=== PATIENT | male | born 1950 | race Caucasian/White ===

== ENCOUNTER 2018-06-12 18:07 | Inpatient (IN) | payer MEDICARE, OTHER ==
--- NOTE | 2018-06-12 18:30 | ED ---
GI/ HPI - HPI Summary HPI Summary: A 67 y/o male brought in by ambulance presents to [facility] with a chief complaint of a possible GI bleed since 02:00 06/12/18. He rates his pain as 0/10. He reports bright red blood in his stool. The patient came from [facility] because the patient was anemic. He had a hemoglobin of 7. He was given 2 units of blood at [place]. He denies hematemesis or abd pain but reports some abd discomfort. He was diagnosed with alcohol induced cirrhosis 4-[address] Alfredo is his GI MD. He also reports a thyroid condition and c/o some nausea. Allergic to shellfish. Hx of hernia.The patient was scheduled for paracentesis. - History of Current Complaint Time Seen by Provider: 06/12/18 18:12 Stated Complaint: POSSIBLE GI BLEED Hx Obtained From: Patient Onset/Duration: Started Hours Ago, Still Present Timing: Constant Severity: Mild Current Severity: Mild Pain Characteristics: Unable to describe Associated Signs and Symptoms: Positive: Nausea. Negative: Hematemesis, Abdominal Pain - Allergy/Home Medications Allergies/Adverse Reactions: Allergies Allergy/AdvReac Type Severity Reaction Status Date / Time MS Shellfish Allergy Allergy Joint Pain Verified 03/07/18 14:26 [Shellfish Allergy] PMH/Surg Hx/FS Hx/Imm Hx Endocrine/Hematology History: Denies: Hx Diabetes, Hx Thyroid Disease Cardiovascular History: Denies: Hx Hypertension, Hx Pacemaker/ICD Respiratory History: Denies: Hx Asthma, Hx Chronic Obstructive Pulmonary Disease (COPD) GI History: Denies: Hx Ulcer History: Denies: Hx Renal Disease Sensory History: Denies: Hx Hearing Aid Psychiatric History: Denies: Hx Panic Disorder - Surgical History Surgery Procedure, Year, and Place: repair of whole in septal wall 2009- AMPLATZER SEPTAL OCCLUDER CONDITIONAL 8 UP TO 3T. TONSIL. VASECTOMY Infectious Disease History: Denies: Hx Clostridium Difficile, Hx Hepatitis, Hx Human Immunodeficiency Virus (HIV), Hx of Known/Suspected MRSA, Hx Shingles, Hx Tuberculosis, Hx Known/ Suspected VRE, Hx Known/Suspected VRSA, History Other Infectious Disease, Traveled Outside the [place] in Last 30 Days - Family History Known Family History: Negative: Hypertension, Diabetes - Social History Alcohol Use: Occasionally Substance Use Type: Reports: None Smoking Status (MU): Light Every Day Tobacco Smoker Amount Used/How Often: less than 1/2 ppd Length of Time of Smoking/Using Tobacco: ~ since age 21 Review of Systems Negative: Fever Gastrointestinal: Negative - hematemesis Positive: Nausea, Other - positive: bright red blood in stool. Negative: Abdominal Pain, Vomiting All Other Systems Reviewed And Are Negative: Yes Physical Exam - Summary Physical Exam Summary: GENERAL: Patient is a well-developed and nourished M who is lying comfortable in the stretcher. Patient is not in any acute respiratory distress. HEAD AND FACE: Normocephalic EYES: PERRLA, EOMI x 2. EARS: Hearing grossly intact. MOUTH: Oropharynx within normal limits. NECK: Supple, trachea is midline, no adenopathy, no JVD, no carotid bruit. CHEST: Symmetric, no tenderness at palpation LUNGS: Clear to auscultation bilaterally. No wheezing or crackles. CVS: Regular rate and rhythm, S1 and S2 present, no murmurs or gallops appreciated. ABDOMEN: Abdomen distended secondary to ascites. Dark red blood, per rectum. EXTREMITIES: Full ROM in all major joints, no edema, no cyanosis or clubbing. NEURO: Alert and oriented x 3. No acute neurological deficits. Speech is normal and follows commands. SKIN: Dry and warm Triage Information Reviewed: Yes Vital Signs Reviewed: Yes Diagnostics - Laboratory Result Diagrams: 06/12/18 18:49 06/12/18 18:49 Lab Statement: Any lab studies that have been ordered have been reviewed, and results considered in the medical decision making process. GIGU Course/Dx - Course Course Of Treatment: A 67 y/o male brought in by ambulance presents to [facility] with a chief complaint of a possible GI bleed since 02:00 06/12/18. He rates his pain as 0/10. He reports bright red blood in his stool. The patient came from [facility] because the patient was anemic. He had a hemoglobin of 7. He was given 2 units of blood at [place]. Workup is remarkable. The physical exam revealed abdomen distended secondary to ascites. Dark red blood, per rectum. In the ED course the patient was given Zofran IV. Lab results obtained. High WBC of 13.9. High Ammonia 181. DX: GI bleed. The patient will be admitted. Case discussed with hospitalist. I discussed results with patient. The patient agrees with this plan. - Diagnoses Provider Diagnoses: GI bleed - Physician Notifications Discussed Care Of Patient With: Hawa Sierra Time Discussed With Above Provider: 18:45 Instructed by Provider To: Admit As Inpatient - Critical Care Time Critical Care Time: 30-74 min Discharge - Sign-Out/Discharge Documenting (check all that apply): Patient Departure - Admit - Discharge Plan Condition: Stable Disposition: ADMITTED TO [facility] Referrals: Roselia Nolasco MD [Primary Care Provider] - - Billing Disposition and Condition Condition: STABLE Disposition: Admitted to [facility] - Attestation Statements Document Initiated by Scribe: Yes Documenting Scribe: Adrian Meza Provider For Whom Da is Documenting (Include Credential): Diana Lancaster MD Scribe Attestation: Adrian Walden scribed for Diana Lancaster MD on 06/12/18 at 2048. Scribe Documentation Reviewed: Yes Provider Attestation: The documentation as recorded by the Adrian palma accurately reflects the service I personally performed and the decisions made by Tracey vela MD Status of Scribe Document: Viewed
[2018-06-12] MEDS ORDERED: Ondansetron INJ* 2 MG/ML VIAL IV ONE (18:57)
[2018-06-12 19:11] LABS: Hematocrit 25 % (42-52); Hemoglobin 8.6 g/dl (14.0-18.0); Mean Corpuscular HGB Conc 35 g/dl (31-36); Mean Corpuscular Hemoglobin 35 pg (27-31); Mean Corpuscular Volume 102 fL (80-94); Mean Platelet Volume 8.1 fL (7.4-10.4); Platelet Count 115 10^3/ul (150-450); Red Blood Count 2.46 10^6/ul (4.00-5.40); Red Cell Distribution Width 22 % (10.5-15); White Blood Count 13.9 10^3/ul (3.5-10.8)
[2018-06-12 19:20] LABS: Activated Partial Thrombo Time 54.9 seconds (26.0-36.3); INR 2.37 (0.77-1.02)
[2018-06-12 19:38] LABS: ABS Basophils 0.1 10^3/ul (0-0.2); ABS Eosinophils 0 10^3/ul (0-0.6); ABS Lymphocytes 1.2 10^3/ul (1.0-4.8); ABS Monocytes 1.8 10^3/ul (0-0.8); ABS Neutrophils 10.8 10^3/ul (1.5-7.7); ABS Nucleated RBC 0 10^3/ul; Eosinophil % 0.3 %; Lymphocyte % 8.9 %; Nucleated Red Blood Cells % 0.1
[2018-06-12] MEDS ORDERED: Pantoprazole* 80 mg IN NS 80 MG/250 ML BAG IVPB ONE (19:47)
[2018-06-12] MEDS ORDERED: Octreotide Acetate* 50 MCG in NS 0.9% 50 ML* 50 ML IVPB ONE (19:51)
[2018-06-12 19:59] LABS: Albumin 2.4 g/dL (3.2-5.2); Calcium 8.3 mg/dL (8.6-10.3); Total Bilirubin 6.3 mg/dL (0.2-1.0)
[2018-06-12] MEDS ORDERED: Octreotide Acetate* 500 MCG in NS 0.9% 100 ML* 100 ML IVPB SCH (20:00)
[2018-06-12 20:05] LABS: Albumin/Globulin Ratio 1.1 (1-3); BUN/Creatinine Ratio 14.4 (8-20); EGFR Non-African American 28.6 (>60); Globulin 2.1 g/dL (2-4); Total Protein 4.5 g/dL (6.4-8.9)
[2018-06-12] MEDS ORDERED: Phytonadione IV (Adult)* 10 MG/ML 1 ML AMP IV ONE (20:55)
[2018-06-12] MEDS ORDERED: Ondansetron INJ* 2 MG/ML VIAL IV PRN (20:57)
[2018-06-12] MEDS: Pantoprazole* 80 mg IN NS 80 MG/250 ML BAG IVPB SCH (22:09)
[2018-06-12] MEDS: NS 0.9% 1000 ML* 1,000 ML IV SCH (22:09)
[2018-06-12] MEDS: cefTRIAXone(*) 1 GM in NS 0.9% 50 ML* 50 ML IVPB SCH (23:12)
[2018-06-12 23:23] LABS: Hematocrit 22 % (42-52); Hemoglobin 7.8 g/dl (14.0-18.0)
--- NOTE | 2018-06-12 23:47 | HP ---
CC: Dr. Nolasco; Dr. Alfredo* HISTORY AND PHYSICAL: DATE OF ADMISSION: 06/12/18 PRIMARY CARE PROVIDER: Dr. Nolasco. DIE WELDER: Dr. Alfredo. ATTENDING PHYSICIAN: Dr. Analy Hernandez* (dictation provided by Salud Betancourt NP) . CHIEF COMPLAINT: Bright red blood per rectum. HISTORY OF PRESENT ILLNESS: Mr. Mcghee is a 67-year-old male with a past history of recent diagnosis of cirrhosis who presents today to the hospital with concern for bright red blood per rectum in transfer from [facility]. Mr. Mcghee reports that he first had bright blood per stool at 2 a.m. this morning. However, he does not that he had coffee ground stool for 2- 3 days prior. Early this morning felt dizzy after a large bloody bowel movement. He sat on the floor and was unable to get up and therefore, emergency medical services were called to bring him into the hospital. He was taken to [facility] where it is reported that his hemoglobin was approximately 7. He received 2 units of blood and then was transferred to [facility]. He states that prior to this, he had been feeling in a reasonable state of health despite his recent worsening diagnosis of cirrhosis. He states that he has had left lower abdominal pain related to an inguinal hernia that has been exacerbated by ascites. Plan was for him to go to for a drain of the ascites tomorrow under the direction of Dr. Alfredo. He had also been started on spironolactone and likely another diuretic, although the patient does not know the name of it as of the past week or so. The patient denies any fevers. He has no abdominal pain, except for at the site of that inguinal hernia. He has had no nausea, except for today when he began to have frequent dry heaves. He states he has not vomited and he has not vomited blood. In the emergency room, Mr. Mcghee had labs which showed his hemoglobin was now 8.6, his white blood cell count is 13.9, and platelet count is 115. His INR is elevated at 2.37. Sodium 126, BUN and creatinine 33 and 2.29, respectively. His total bilirubin is 6.30. Mr. Mcghee states that he was originally diagnosed with cirrhosis just a few months ago. He had had a gallstone which passed spontaneously and after that, he had had a CT scan, which showed some concern for cirrhosis. He has been following with Dr. Alfredo for this. He has been having worsening issues with elevated bilirubins and now worsening ascites. The patient states that the suspicion is that cirrhosis was due to alcohol use, although he feels that he was never really a very heavy drinker. PAST MEDICAL HISTORY: 1. History of recent diagnosis of cirrhosis, likely due to alcoholism. 2. Inguinal hernia. MEDICATIONS: Outpatient - the patient states he takes spironolactone and another diuretic, although he does not know the name. He obtains his medications from the [facility] in [place] on [address] and this should be obtained from them tomorrow. The other medications he takes are: 1. Omeprazole 20 mg p.o. b.i.d. p.r.n. 2. Allopurinol 100 mg p.o. daily p.r.n. 3. Multivitamin mineral 1 tab p.o. daily. 4. Levothyroxine 75 mcg p.o. daily. 5. Cholecalciferol 400 units p.o. daily. 6. Atorvastatin 10 mg p.o. daily. ALLERGIES: SHELLFISH. FAMILY HISTORY: Reviewed and noncontributory. SOCIAL HISTORY: The patient states he smokes about 1 cigarette per day. He drank previously, but has not drank since his diagnosis of cirrhosis. No reported drug use. He lives with his who is the healthcare proxy. Her name is Genet. REVIEW OF SYSTEMS: A 14-point review of systems was completed with Mr. Mcghee and all those not mentioned above were negative. PHYSICAL EXAMINATION GENERAL APPEARANCE: Mr. Mcghee is sitting on the bed. He appears to be initially in no acute distress, although later in my conversations with him and his family, he is having near constant dry heaving, which makes it difficult for him to speak. He does not vomit. VITAL SIGNS: Temperature 97.8, pulse rate 75, respiratory rate 20, O2 saturation 95% on room air, blood pressure 103/50. HEENT: Extraocular movements are intact. LUNGS: Clear to auscultation bilaterally with no accessory muscle use and good aeration. HEART: S1, S2. No murmur, rub, or gallop and regular. ABDOMEN: Protuberant. It is soft. It is nontender. Bowel sounds present x4. EXTREMITIES: No cyanosis. No edema. NEUROLOGIC: He is alert. He is oriented x3. He moves all extremities equally. There is no facial asymmetry or focal weakness. SKIN: Intact. DIAGNOSTIC STUDIES/LAB DATA: Sodium 126, potassium 5.0, chloride 93, serum bicarbonate 23, BUN 33, creatinine 2.29, glucose 84, total bilirubin 6.30, ammonia 181. WBC 13.9, hemoglobin 8.6, hematocrit 25, platelet count 115. INR 2.37. ASSESSMENT AND PLAN: Mr. Mcghee is a 67-year-old male with a very recent diagnosis of psoriasis who presents today with concern for gastrointestinal bleed, acute kidney injury, and hyperammonemia. Our plans are for inpatient admission with expected length of stay to be greater than 2 days for the followin. Gastrointestinal bleeding. Our concern here is that the patient is having brisk esophageal variceal bleeding. However, he has not vomited any blood, but is continuously dry heaving. I have spoken with Dr. Villasenor about this and the plans are for him to be on an octreotide drip and a pantoprazole drip. He will have FFP x2, vitamin K 10 mg. The patient will be admitted to the ICU, his last hemoglobin was at 1849. We will be drawing another hemoglobin at 2300 and then q.4 hours from there, rechecking INR after FFP and vitamin K at 3 o'clock in the morning. Again, Dr. Villasenor is aware and is providing full consultation. 2. Cirrhosis. The patient is also at high risk for spontaneous bacterial peritonitis and is being provided ceftriaxone as prophylaxis. He does have a very high ammonia level and he was given lactulose x1 in the emergency department. Plan to continue lactulose q6h for now. 3. Acute kidney injury. I suspect this is all due to bleeding and his associated liver failure. Plan to hydrate through the night and recheck his labs tomorrow. . 4. Hypothyroidism. He will continue levothyroxine IV. 5. DVT prophylaxis with SCDs only. 6. Code status is full code. TIME SPENT: Approximately 90 minutes were spent on the admission of this patient, more than half the time was spent with the patient at the bedside reviewing the events leading up to this hospitalization, performing the physical examination, and reviewing my plan of care. SALUD BETANCOURT NP [id number]/[facility] #: [id number] YAMILET
--- NOTE | 2018-06-13 02:42 | CONS ---
GASTROENTEROLOGY CONSULTATION: DATE: CONSULTING PHYSICIANS: Analy Hernandez Hospitalist, Roselia Nolasco, [facility] , Naseem Alfredo* REASON FOR CONSULT: Multiple bloody stools after 2 AM preceded by passing loose coffee colored stools 3 days before. HISTORY OF PRESENT ILLNESS: This 67-year-old man was told he had cirrhosis this year a few months back and was started on diuretics in March. He had been seen by his primary, Dr. Nolasco in [place] and had some workup there and further workup with Dr Alfredo that is not immediately available. He had been drinking gin but gave it up a couple of months ago. He had a history of mild anemia and heme positive stool (records in [place]) and underwent upper endoscopy by Dr. Alfredo 06/11/15 and he was listed as on omeprazole in the preprocedure consult. The EGD showed a healing gastric antral ulcer and some duodenitis. No esophageal pathology was mentioned, although the patient was also complaining of dysphagia preprocedure. Biopsies of multiple sites were normal and CLOtest was negative. He was taking Aleve At this time, he denies taking any NSAIDs including multiple specific trade names saying his MDs told him not to. However, he did have a fall late February bruising multiple left-sided ribs and maintains he did not take anything for it. He denies being a headache sufferer or having any specific arthritis problem. With the abdominal swelling, he was placed on diuretics sometime in March. His renal function 03/17/18 was creatinine 1.00, BUN 10, sodium 135. His albumin was 3.1. About a week ago, he went to the [place] [facility] Room with more abdominal swelling and concern about a hernia. His hemoglobin was said to be 12 then. Plans were made to tap abdominal ascites before consulting a surgeon. He became very weak and passed the dark stool over the last 3 days. He had yuriy bloody stools at 2 a.m. today and could not get up and was brought to the [place] ER. There, his hemoglobin was 7.4. PAST MEDICAL HISTORY: 1. Cirrhosis - he was told that this summer by Dr. Nolasco and Dr. Alfredo. In March his Bili was in the 5's and INR 1.64. He had an MRCP here 03/09/18 , showing splenomegaly, no specific intrahepatic abnormality, though a lobulated contour of the liver and some probable small gallstones. There was a right pleural effusion. The patient says he had a CAT scan earlier this year in [place], results are not available. Results of the serologic cirrhosis workup were presumably in [place]. Patient has a history of multiple drinks of gin every day and a few beers a week. He avoids wine to not precipitate gout. Denies a family history of liver disease 2. Gout - avoids red wine 3. History of peptic ulcer. 4. Hypothyroidism. 5. Dyslipidemia. 6. Implantation of ASD closure device in 2009 in [place] - after murmur heard by his primary physician. 7 Vasectomy OUTPATIENT MEDICATIONS: 1. Omeprazole 20 mg b.i.d. (was listed in his May 2015 consult with Mai Dutta, nurse practitioner, at [facility]) - he now says he takes it only rarely as needed which is before a meal he anticipates will be spicey which is every few weeks or once a month 2. Levothyroxine 75 mcg p.o. daily. 3. Lipitor 10 mg. 4. Allopurinol 100 mg. 5. Multivitamin - specifics not known. ALLERGIES: SHELLFISH - he avoids so as not to precipitate gout. 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 Another son who had schizophrenia in 2012. His primary drink was gin 4 or five a day with some beer. REVIEW OF SYSTEMS: He denies any history of syncope, seizure, TIA, CVA, TB, hemoptysis, acute hepatitis, abdominal surgery. He has had a vasectomy. PHYSICAL EXAM: He is a tired appearing older man with a symmetrically distended abdomen, in bed in the ICU speaking slowly but clearly. Pulse 77, blood pressure 104/41, O2 saturation 96%, afebrile, in no acute distress at this time. He was described as gagging repeatedly in the emergency room but that was not evident at all during the interview or exam. He has somewhat muddy mildly icteric sclerae. His skin is glassy and somewhat atrophic. There is 2+ pitting edema in the legs. He is alert and oriented, though a difficult historian as he wishes generally to answer relating a long story as opposed to answering direct questions. HEENT exam is otherwise unremarkable. He has no adenopathy. Lungs are clear without rhonchi. Heart sounds are regular. The abdomen is grossly distended with ascites. There is no mass felt. Rectal: Deferred. Extremities are symmetric with no scars and 2+ edema past the knees. He is oriented x3. There is some minimal asterixis. He seems to have good recall. DIAGNOSTIC STUDIES/LAB DATA: White count 13.9, hemoglobin 8.6 (after 2 units transfused in [place]), MCV 102, platelets 115,000. INR 2.37 (was 1.64 on 08/01 at [facility]). Chemistry shows sodium 126, potassium 5.0, BUN 33, creatinine 2.29, bilirubin 6.3, ALT 25, AST 87, alkaline phosphatase 80, ammonia 181, albumin 2.4. IMPRESSION: This 67-year-old man with alcoholic cirrhosis has had a rapid marked deterioration and now has ascites, splenomegaly, GI bleeding, elevated ammonia and signs of renal failure. exactly 3 yrs ago EGD showed no varices and a healing ulcer. He had been taking Aleve and some amount of omeprazole PLAN: For the moment, the priority is managing GI bleeding and he will be getting Protonix and octreotide drips, some FFP and a third unit of blood. With the bleeding going back 3 or 4 days and his having only 1 stool since leaving the [place] [facility] a wide open variceal bleed is less likely. If he is truly off all NSAIDs peptic ulceration in the stomach is less likely, though he hasn't been taking his PPI and that would be consistent with the endoscopy from 3 years ago. He could also be bleeding from portal hypertensive gastropathy. At the moment, he does not appear to be bleeding fast enough to likely benefit from therapeutic endoscopy. The rapid onset ascites and the renal failure despite his not being overtly dried out with diuretics (leg edema) raises the question as to whether he could have a portal vein thrombosis or neoplastic process in the liver. His prognosis is certainly quite guarded. [id number]/[facility] #: [id number] [facility]
[2018-06-13 03:23] LABS: Hematocrit 23 % (42-52); Hemoglobin 8.2 g/dl (14.0-18.0)
[2018-06-13 03:31] LABS: INR 1.89 (0.77-1.02)
[2018-06-13] MEDS ORDERED: Phytonadione IV (Adult)* 10 MG/ML 1 ML AMP IV ONE (03:45)
[2018-06-13] MEDS ORDERED: Phytonadione IV (Adult)* 10 MG/ML 1 ML AMP ONE (04:12)
[2018-06-13] MEDS: Pantoprazole* 80 mg IN NS 80 MG/250 ML BAG IVPB SCH ×2 (06:04→17:25)
[2018-06-13] MEDS: Levothyroxine INJ* 100 MCG/5 ML VIAL IV SCH (06:05)
[2018-06-13 06:28] LABS: Hematocrit 22 % (42-52); Hemoglobin 7.7 g/dl (14.0-18.0)
[2018-06-13 06:34] LABS: INR 1.8 (0.77-1.02)
[2018-06-13 06:51] LABS: Albumin 2.6 g/dL (3.2-5.2); Albumin/Globulin Ratio 1.2 (1-3); BUN/Creatinine Ratio 15.3 (8-20); Calcium 8.4 mg/dL (8.6-10.3); EGFR Non-African American 27.6 (>60); Globulin 2.2 g/dL (2-4); Potassium 4.9 mmol/L (3.5-5.0); Total Bilirubin 7.9 mg/dL (0.2-1.0); Total Protein 4.8 g/dL (6.4-8.9)
[2018-06-13] MEDS ORDERED: Octreotide Acetate* 500 MCG in NS 0.9% 100 ML* 100 ML IVPB SCH (09:00)
--- NOTE | 2018-06-13 09:10 | PN ---
Date of Service: 06/13/18 Critical Care Services: 67M with hld, hypothyroid, gout, etoh cirrhosis, pud presents with likely UGI bleed. 06/13: hgb stable. renal function slightly worse. Vital Signs: Temp Pulse Resp BP SpO2 FiO2 97.7 F 93 23 137/59 94 06/13/18 08:00 06/13/18 08:00 06/13/18 08:00 06/13/18 08:00 06/13/18 08:00 Physical Exam: Gen - nad heent - ncat, eomi, scleral icterus neck - no jvd cv - s1/s1, no murmur lungs - cta, no wheeze abd - soft, +distended, +fluid wave ext - no cce neuro - non-focal Fluid Balance (Past 24 Hours): I= O= Net Intake & Output 06/11/18 06/12/18 06/13/18 06/14/18 06:59 06:59 06:59 06:59 Intake Total 2722 0 Output Total 236 75 Balance 2486 -75 Weight 105.6 kg Intake: IV Fluids 1029 NS (0.9%) 1029 IVPB 165 ABX - CEFTRIAXONE 55 Vitamin K 110 Medicated IV 325 GEN - Octreotide 88 GEN - Pantoprazole/ 237 Protonix Packed Cells 270 0 Fresh Frozen Plasma 933 0 Output: Marie 236 75 Other: Date of Last Bowel 06/13/18 06/13/18 Movement # Bowel Movements 1 0 Estimated Stool Amount Medium Medium Labs: Laboratory Results - last 24 hr 06/12/18 06/12/18 06/12/18 18:49 18:49 18:49 WBC 13.9 H RBC 2.46 L Hgb 8.6 L Hct 25 L MCV 102 H MCH 35 H MCHC 35 RDW 22 H Plt Count 115 L MPV 8.1 Neut % (Auto) 77.5 Lymph % (Auto) 8.9 Pike % (Auto) 12.8 Eos % (Auto) 0.3 Baso % (Auto) 0.5 Absolute Neuts (auto) 10.8 H Absolute Lymphs (auto) 1.2 Absolute Monos (auto) 1.8 H Absolute Eos (auto) 0 Absolute Basos (auto) 0.1 Absolute Nucleated RBC 0 Nucleated RBC % 0.1 Anisocytosis 2+ Macrocytosis 1+ INR (Anticoag Therapy) 2.37 H APTT 54.9 H Sodium 126 L Potassium 5.0 Chloride 93 L Carbon Dioxide 23 Anion Gap 10 BUN 33 H Creatinine 2.29 H Est GFR ( Amer) 34.6 Est GFR (Non-Af Amer) 28.6 BUN/Creatinine Ratio 14.4 Glucose 84 Calcium 8.3 L Total Bilirubin 6.30 H AST 87 H ALT 25 Alkaline Phosphatase 80 Ammonia Total Protein 4.5 L Albumin 2.4 L Globulin 2.1 Albumin/Globulin Ratio 1.1 Blood Type Antibody Screen Crossmatch 06/12/18 06/12/18 06/12/18 18:49 18:49 23:11 WBC RBC Hgb 7.8 L Hct 22 L MCV MCH MCHC RDW Plt Count MPV Neut % (Auto) Lymph % (Auto) Pike % (Auto) Eos % (Auto) Baso % (Auto) Absolute Neuts (auto) Absolute Lymphs (auto) Absolute Monos (auto) Absolute Eos (auto) Absolute Basos (auto) Absolute Nucleated RBC Nucleated RBC % Anisocytosis Macrocytosis INR (Anticoag Therapy) APTT Sodium Potassium Chloride Carbon Dioxide Anion Gap BUN Creatinine Est GFR ( Amer) Est GFR (Non-Af Amer) BUN/Creatinine Ratio Glucose Calcium Total Bilirubin AST ALT Alkaline Phosphatase Ammonia 181 H Total Protein Albumin Globulin Albumin/Globulin Ratio Blood Type O Positive Antibody Screen Negative Crossmatch See Detail 06/13/18 06/13/18 06/13/18 03:13 03:13 06:12 WBC RBC Hgb 8.2 L 7.7 L Hct 23 L 22 L MCV MCH MCHC RDW Plt Count MPV Neut % (Auto) Lymph % (Auto) Pike % (Auto) Eos % (Auto) Baso % (Auto) Absolute Neuts (auto) Absolute Lymphs (auto) Absolute Monos (auto) Absolute Eos (auto) Absolute Basos (auto) Absolute Nucleated RBC Nucleated RBC % Anisocytosis Macrocytosis INR (Anticoag Therapy) 1.89 H APTT Sodium Potassium Chloride Carbon Dioxide Anion Gap BUN Creatinine Est GFR ( Amer) Est GFR (Non-Af Amer) BUN/Creatinine Ratio Glucose Calcium Total Bilirubin AST ALT Alkaline Phosphatase Ammonia Total Protein Albumin Globulin Albumin/Globulin Ratio Blood Type Antibody Screen Crossmatch 06/13/18 06/13/18 06:12 06:12 WBC RBC Hgb Hct MCV MCH MCHC RDW Plt Count MPV Neut % (Auto) Lymph % (Auto) Pike % (Auto) Eos % (Auto) Baso % (Auto) Absolute Neuts (auto) Absolute Lymphs (auto) Absolute Monos (auto) Absolute Eos (auto) Absolute Basos (auto) Absolute Nucleated RBC Nucleated RBC % Anisocytosis Macrocytosis INR (Anticoag Therapy) 1.80 H APTT Sodium 127 L Potassium 4.9 Chloride 95 L Carbon Dioxide 24 Anion Gap 8 BUN 36 H Creatinine 2.36 H Est GFR ( Amer) 33.4 Est GFR (Non-Af Amer) 27.6 BUN/Creatinine Ratio 15.3 Glucose 112 H Calcium 8.4 L Total Bilirubin 7.90 H D AST 213 H ALT 59 H Alkaline Phosphatase 76 Ammonia Total Protein 4.8 L Albumin 2.6 L Globulin 2.2 Albumin/Globulin Ratio 1.2 Blood Type Antibody Screen Crossmatch Impression: 67M with hld, hypothyroid, gout, etoh cirrhosis, pud presents with likely UGI bleed. Decompensated liver failure. Hepato-renal syndrome? Plan: Neuro - ams - 2/2 hyperammonemia - lactulose q6h cv - hld - hold statin in liver failure pulm - mild hypoxia - 2/2 low lung volumes from ascites id - afebrile - normal wbc - ascitic fluid sent to r/o sbp - empiric ceftriaxone for prophylaxis GI - gi bleed, decompensated liver failure, hrs? - albumin, midodrine, octreotide - ppi gtt - serial cbc - npo for egd - MELD score 35 renal - hrs? - monitor i/o - gentle hydration - albumin, midodrine, octreotide - check urine sodium heme - coagulopathy - given ffp, vitamink - monitor for continued bleeding endo - hypothyroid - c/w synthroid lines - piv ppx - gi/dvt full code Critical Care Time: 65 mins
[2018-06-13] MEDS: Albumin Human 25%* 25 GM/100 ML BTL IV SCH ×2 (09:36→16:56)
[2018-06-13] MEDS: CMCS - Midodrine (NF) 5 MG TAB PO SCH ×2 (09:53→17:26)
[2018-06-13 10:24] LABS: Urine Sodium Concentration < 18 mmol/L
[2018-06-13] MEDS ORDERED: Midazolam* 1 MG/ML 10 ML VIAL (10 MG) ONE (10:40)
[2018-06-13] MEDS ORDERED: fentaNYL* 50 MCG/ML 2 ML VIAL (100 MCG VIAL) ONE (10:40)
[2018-06-13 10:44] LABS: Urine Creatinine Concentration < 1.00 mg/dL
[2018-06-13 10:59] LABS: Body Fluid Source Peritonial Fluid
--- NOTE | 2018-06-13 11:09 | OP ---
Operative Report - Blank - Operative Report Date of Operation: 06/13/18 Note: Paracentesis Procedure Note Consent for operation or procedure: Risks and benefits discussed with patient and consent obtained Anesthesia: 2 cc of Lidocaine Patient positioned supine. Abdomen examined with ultrasound for appropriate site placement. Site marked and prepared with chlorhexadine. Site draped with sterile dressing. Wheel of lidocaine placed. Lidocaine then introduced deep to the peritoneum. Skin punctured with a scalpel. Paracentesis needle was placed through the skin into the abdominal cavity. The needle was withdrawn and the site cleaned and bandaged with gauze and tape. Samples were sent to the lab for analysis. Yellow colored was fluid removed Amount of fluid removed: 60 cc Estimated Blood Loss: minimal Complications: The patient tolerated the procedure well without complications.
[2018-06-13 11:23] LABS: Hematocrit 21 % (42-52); Hemoglobin 7.3 g/dl (14.0-18.0)
[2018-06-13 12:12] LABS: Body Fluid Mono 35 %; Body Fluid Other Cells 8
[2018-06-13 15:20] LABS: Hematocrit 21 % (42-52); Hemoglobin 7.2 g/dl (14.0-18.0)
--- NOTE | 2018-06-13 20:31 | PRO ---
CC: Roselia Nolasco MD * DATE OF PROCEDURE: 06/13/18 - ROOM #410 PROCEDURE: EGD. INDICATION: History of cirrhosis, hemorrhage of rectum and anus. REFERRING PHYSICIAN: Roselia Nolasco MD MEDICATIONS GIVEN: 25 mcg IV fentanyl, 5 mg IV Versed. DESCRIPTION OF PROCEDURE: After the EGD procedure including the risks, benefits , and alternatives, not limited to perforation, surgery, and/or were explained to Mr. Mcghee, written consent was then obtained, IV medication was given and a bite-block was placed between the teeth. An Olympus gastroscope was then inserted into the patient's mouth, advanced down the esophagus, into the stomach, into the distal duodenum. In the esophagus at the GE junction, no esophageal varices were seen. The scope was advanced through the GE junction and into the body of the stomach. Retroflex view was unremarkable. No gastric varices were seen. Forward view did confirm portal hypertensive gastropathy. No active bleeding. The scope was advanced through the widely patent pylorus into the duodenal bulb. There was a clean based medium sized ulcer in the duodenal bulb. There were also numerous smaller ulcers, all clean based, all non-bleeding. The scope was advanced into the distal duodenum, where again small clean based ulcers were seen, non-bleeding. The scope was then withdrawn into the stomach where an H. pylori biopsy was obtained to evaluate for his peptic ulcer disease. The scope was then withdrawn from the patient. He tolerated the procedure well and was returned to the care of the ICU staff. IMPRESSION: 1. Complete upper endoscopy into the distal duodenum with biopsy. 2. Biopsy for H. pylori. 3. No esophageal or gastric varices. 4. Mild portal hypertensive gastropathy. 5. Duodenal ulcers. 6. I will follow up on the biopsy for the H. pylori. We can stop his octreotide. I would recommend we continue with his PPI. [id number]/[facility] #: [id number] [facility]
[2018-06-13] MEDS: cefTRIAXone(*) 1 GM in NS 0.9% 50 ML* 50 ML IVPB SCH (21:04)
[2018-06-14] MEDS: Albumin Human 25%* 25 GM/100 ML BTL IV SCH (00:52)
[2018-06-14] MEDS: CMCS - Midodrine (NF) 5 MG TAB PO SCH ×2 (00:56→09:19)
[2018-06-14] MEDS: NS 0.9% 1000 ML* 1,000 ML IV SCH (02:17)
[2018-06-14] MEDS: Pantoprazole* 80 mg IN NS 80 MG/250 ML BAG IVPB SCH ×2 (03:32→14:34)
[2018-06-14 05:05] LABS: Albumin/Globulin Ratio 1.7 (1-3); BUN/Creatinine Ratio 16.8 (8-20); Calcium 8.5 mg/dL (8.6-10.3); EGFR Non-African American 35.2 (>60); Globulin 1.8 g/dL (2-4); Magnesium 1.8 mg/dL (1.9-2.7); Potassium 4.4 mmol/L (3.5-5.0); Total Bilirubin 6.5 mg/dL (0.2-1.0); Total Protein 4.8 g/dL (6.4-8.9)
[2018-06-14 05:09] LABS: INR 2.04 (0.77-1.02)
[2018-06-14 05:41] LABS: Hematocrit 21 % (42-52); Mean Corpuscular HGB Conc 34 g/dl (31-36); Mean Corpuscular Hemoglobin 34 pg (27-31); Mean Corpuscular Volume 100 fL (80-94); Mean Platelet Volume 7.3 fL (7.4-10.4); Platelet Count 72 10^3/ul (150-450); Red Blood Count 2.06 10^6/ul (4.00-5.40); Red Cell Distribution Width 24 % (10.5-15); White Blood Count 8.5 10^3/ul (3.5-10.8)
[2018-06-14 05:59] LABS: ABS Basophils 0.1 10^3/ul (0-0.2); ABS Eosinophils 0.1 10^3/ul (0-0.6); ABS Lymphocytes 0.9 10^3/ul (1.0-4.8); ABS Monocytes 1.1 10^3/ul (0-0.8); ABS Neutrophils 6.3 10^3/ul (1.5-7.7); ABS Nucleated RBC 0 10^3/ul; Lymphocyte % 10.8 %; Nucleated Red Blood Cells % 0.1
[2018-06-14] MEDS: Levothyroxine INJ* 100 MCG/5 ML VIAL IV SCH (06:17)
--- NOTE | 2018-06-14 08:25 | PN ---
Date of Service: 06/14/18 Critical Care Services: 67M with hld, hypothyroid, gout, etoh cirrhosis, pud presents with likely UGI bleed. 06/13: hgb stable. renal function slightly worse. 06/14: EGD with non-bleeding ulcers. Renal function improving. hgb stable. Vital Signs: Temp Pulse Resp BP SpO2 FiO2 97.5 F 81 13 134/55 92 06/14/18 08:00 06/14/18 08:00 06/14/18 08:00 06/14/18 08:00 06/14/18 08:00 Physical Exam: Gen - nad heent - ncat, eomi, scleral icterus neck - no jvd cv - s1/s1, no murmur lungs - cta, no wheeze abd - soft, +distended, +fluid wave ext - no cce neuro - non-focal Fluid Balance (Past 24 Hours): I= O= Net Intake & Output 06/12/18 06/13/18 06/14/18 06/15/18 06:59 06:59 06:59 06:59 Intake Total 2722 2300 0 Output Total 236 1755 Balance 2486 545 0 Weight 105.6 kg 111.4 kg Intake: IV Fluids 1029 1456 NS (0.9%) 1029 1456 IVPB 165 57 ABX - CEFTRIAXONE 55 57 Vitamin K 110 Medicated IV 325 587 GEN - Octreotide 88 52 GEN - Pantoprazole/ 237 535 Protonix Packed Cells 270 0 Fresh Frozen Plasma 933 0 Albumin 200 0 Output: Urine 360 Marie 236 1395 Other: Date of Last Bowel 06/13/18 06/13/18 06/13/18 Movement # Bowel Movements 1 0 0 Estimated Stool Amount Medium Medium Medium Labs: Laboratory Results - last 24 hr 06/13/18 06/13/18 06/13/18 09:20 10:00 10:00 WBC RBC Hgb Hct MCV MCH MCHC RDW Plt Count MPV Neut % (Auto) Lymph % (Auto) Mcleod % (Auto) Eos % (Auto) Baso % (Auto) Absolute Neuts (auto) Absolute Lymphs (auto) Absolute Monos (auto) Absolute Eos (auto) Absolute Basos (auto) Absolute Nucleated RBC Nucleated RBC % INR (Anticoag Therapy) Sodium Potassium Chloride Carbon Dioxide Anion Gap BUN Creatinine Est GFR ( Amer) Est GFR (Non-Af Amer) BUN/Creatinine Ratio Glucose Serum Osmolality Calcium Magnesium Total Bilirubin Direct Bilirubin Indirect Bilirubin AST ALT Alkaline Phosphatase Ammonia Total Protein Albumin Globulin Albumin/Globulin Ratio Urine Osmolality 374 Ur Creatinine Concen < 1.00 U Sodium Concentration < 18 Fluid Source Peritonial fluid Fluid Volume 9 Fluid Color Yellow Fluid Appearance Clear Fluid WBC 171 Fluid RBC 2536 Fluid Tot Cell Count 100 Fluid Neutrophils 14 Fluid Lymphocytes 51 Fluid Monocytes 35 Fluid Other Cells 8 Fluid Cell Count Rvw By 06/13/18 06/13/18 06/14/18 11:00 15:10 04:28 WBC RBC Hgb 7.3 L 7.2 L Hct 21 L 21 L MCV MCH MCHC RDW Plt Count MPV Neut % (Auto) Lymph % (Auto) Mcleod % (Auto) Eos % (Auto) Baso % (Auto) Absolute Neuts (auto) Absolute Lymphs (auto) Absolute Monos (auto) Absolute Eos (auto) Absolute Basos (auto) Absolute Nucleated RBC Nucleated RBC % INR (Anticoag Therapy) Sodium Potassium Chloride Carbon Dioxide Anion Gap BUN Creatinine Est GFR ( Amer) Est GFR (Non-Af Amer) BUN/Creatinine Ratio Glucose Serum Osmolality 281 Calcium Magnesium Total Bilirubin Direct Bilirubin Indirect Bilirubin AST ALT Alkaline Phosphatase Ammonia Total Protein Albumin Globulin Albumin/Globulin Ratio Urine Osmolality Ur Creatinine Concen U Sodium Concentration Fluid Source Fluid Volume Fluid Color Fluid Appearance Fluid WBC Fluid RBC Fluid Tot Cell Count Fluid Neutrophils Fluid Lymphocytes Fluid Monocytes Fluid Other Cells Fluid Cell Count Rvw By 06/14/18 06/14/18 06/14/18 04:28 04:28 04:28 WBC 8.5 RBC 2.06 L Hgb 7.0 L Hct 21 L MCV 100 H MCH 34 H MCHC 34 RDW 24 H Plt Count 72 L MPV 7.3 L Neut % (Auto) 74.8 Lymph % (Auto) 10.8 Mcleod % (Auto) 12.6 Eos % (Auto) 1.0 Baso % (Auto) 0.8 Absolute Neuts (auto) 6.3 Absolute Lymphs (auto) 0.9 L Absolute Monos (auto) 1.1 H Absolute Eos (auto) 0.1 Absolute Basos (auto) 0.1 Absolute Nucleated RBC 0 Nucleated RBC % 0.1 INR (Anticoag Therapy) Sodium 129 L Potassium 4.4 Chloride 99 L Carbon Dioxide 26 Anion Gap 4 BUN 32 H Creatinine 1.91 H Est GFR ( Amer) 42.6 Est GFR (Non-Af Amer) 35.2 BUN/Creatinine Ratio 16.8 Glucose 109 H Serum Osmolality Calcium 8.5 L Magnesium 1.8 L Total Bilirubin 6.50 H Direct Bilirubin 2.50 H Indirect Bilirubin 4.0 H AST 351 H ALT 99 H Alkaline Phosphatase 55 Ammonia TNP Total Protein 4.8 L Albumin 3.0 L Globulin 1.8 L Albumin/Globulin Ratio 1.7 Urine Osmolality Ur Creatinine Concen U Sodium Concentration Fluid Source Fluid Volume Fluid Color Fluid Appearance Fluid WBC Fluid RBC Fluid Tot Cell Count Fluid Neutrophils Fluid Lymphocytes Fluid Monocytes Fluid Other Cells Fluid Cell Count Rvw By 06/14/18 04:28 WBC RBC Hgb Hct MCV MCH MCHC RDW Plt Count MPV Neut % (Auto) Lymph % (Auto) Mcleod % (Auto) Eos % (Auto) Baso % (Auto) Absolute Neuts (auto) Absolute Lymphs (auto) Absolute Monos (auto) Absolute Eos (auto) Absolute Basos (auto) Absolute Nucleated RBC Nucleated RBC % INR (Anticoag Therapy) 2.04 H Sodium Potassium Chloride Carbon Dioxide Anion Gap BUN Creatinine Est GFR ( Amer) Est GFR (Non-Af Amer) BUN/Creatinine Ratio Glucose Serum Osmolality Calcium Magnesium Total Bilirubin Direct Bilirubin Indirect Bilirubin AST ALT Alkaline Phosphatase Ammonia Total Protein Albumin Globulin Albumin/Globulin Ratio Urine Osmolality Ur Creatinine Concen U Sodium Concentration Fluid Source Fluid Volume Fluid Color Fluid Appearance Fluid WBC Fluid RBC Fluid Tot Cell Count Fluid Neutrophils Fluid Lymphocytes Fluid Monocytes Fluid Other Cells Fluid Cell Count Rvw By Studies: EGD : +gastric ulcers Impression: 67M with hld, hypothyroid, gout, etoh cirrhosis, pud presents with likely UGI bleed. Decompensated liver failure. Hepato-renal syndrome? Plan: Neuro - ams - 2/2 hyperammonemia - lactulose q6h cv - hld - hold statin in liver failure pulm - mild hypoxia - 2/2 low lung volumes from ascites id - afebrile - normal wbc - paracentesis neg for sbp - empiric ceftriaxone for prophylaxis GI - gi bleed, decompensated liver failure, hrs? - albumin, midodrine - ppi gtt - serial cbc - egd with ulcers - advance diet as tolerated renal - hrs? - monitor i/o - gentle hydration - albumin, midodrine heme - coagulopathy - given ffp, vitamink - monitor for continued bleeding endo - hypothyroid - c/w synthroid lines - piv ppx - gi/dvt full code Critical Care Time: 50 mins
[2018-06-14] MEDS: Octreotide Acetate* 500 MCG in NS 0.9% 100 ML* 100 ML IVPB SCH ×2 (11:59→22:37)
[2018-06-14] MEDS ORDERED: Epoetin Alfa* 10,000 UNITS/ML VIAL SUBCUT ONE (12:00)
[2018-06-14] MEDS ORDERED: Octreotide Acetate* 500 MCG in NS 0.9% 100 ML* 100 ML IVPB SCH (12:00)
--- NOTE | 2018-06-14 13:21 | OP ---
Operative Report - Blank - Operative Report Date of Operation: 06/14/18 Note: Central Venous Catheter (CVC, Central Line) Placement Date: 06/14/18 Time: 1300 Indication: Hemodynamic monitoring/Intravenous access Attending: Gabriela Ospina time-out was completed verifying correct patient, procedure, site, positioning , and special equipment if applicable. The patient was placed in a dependent position appropriate for central line placement based on the vein to be cannulated. The patients right neck was prepped and draped in sterile fashion. 1% Lidocaine was used to anesthetize the surrounding skin area. A triple lumen 7 -Austrian catheter was introduced into the the internal jugular vein using the Seldinger technique and under ultrasound guidance. The catheter was threaded smoothly over the guide wire and appropriate blood return was obtained. Each lumen of the catheter was evacuated of air and flushed with sterile saline. The catheter was then sutured in place to the skin and a sterile dressing applied. Estimated Blood Loss: none The patient tolerated the procedure well and there were no complications.
[2018-06-14 14:27] LABS: ABS Basophils 0.1 10^3/ul (0-0.2); ABS Eosinophils 0.2 10^3/ul (0-0.6); ABS Lymphocytes 0.8 10^3/ul (1.0-4.8); ABS Monocytes 1.2 10^3/ul (0-0.8); ABS Neutrophils 6.1 10^3/ul (1.5-7.7); ABS Nucleated RBC 0 10^3/ul; Eosinophil % 1.9 %; Hematocrit 23 % (42-52); Hemoglobin 7.9 g/dl (14.0-18.0); Lymphocyte % 9.6 %; Mean Corpuscular HGB Conc 34 g/dl (31-36); Mean Corpuscular Hemoglobin 34 pg (27-31); Mean Corpuscular Volume 100 fL (80-94); Mean Platelet Volume 7.2 fL (7.4-10.4); Nucleated Red Blood Cells % 0.1; Platelet Count 77 10^3/ul (150-450); Red Cell Distribution Width 24 % (10.5-15); White Blood Count 8.4 10^3/ul (3.5-10.8)
[2018-06-14] MEDS ORDERED: Vancomycin(*) 1,000 MG in NS 0.9% 250 ML* 250 ML IVPB ONE (15:10)
[2018-06-14] MEDS ORDERED: Vancomycin per Pharmacy* NOTE FOLLOW UP SCH (16:00)
[2018-06-14] MEDS ORDERED: Vancomycin(*) 0 MG in NS 0.9% 250 ML* 250 ML IVPB SCH (16:00)
--- NOTE | 2018-06-14 16:36 | CONS ---
CC: Dr. Nolasco Watchung; Dr. Alfredo * NEPHROLOGY CONSULTATION: DATE OF CONSULT: 06/14/18 HISTORY OF PRESENT ILLNESS: Mr. Mcghee is a 67-year-old gentleman with a history of cirrhosis presumed to be secondary to alcohol intake. He presented with bright red blood per rectum. He has been noted to have increasing abdominal girth over the past 2 months. He has also noticed that his urine has turned a bright orangey color over about the same period of time. He has not had nausea or vomiting. He has not had abdominal pain. He is feeling considerably better now than on admission. He has been found to have some duodenal ulcers, which are thought to account for his gastrointestinal bleeding. PAST MEDICAL HISTORY: His previous medical history is significant for hypothyroidism. He has a history of an inguinal hernia. He has history of gout and previously known peptic ulcer disease. He was previously treated for an ASD. MEDICATIONS: His outpatient medications included: 1. Omeprazole 20 mg b.i.d. 2. Levothyroxine 75 mcg daily. 3. Lipitor 10 mg daily. 4. Allopurinol 100 mg daily. 5. Multivitamins 1 daily. ALLERGIES: He is allergic to SHELLFISH. SOCIAL HISTORY: He is . He is a retired banker. Previously, he was drinking 4 to 5 drinks per day. PHYSICAL EXAM: On physical examination, he is a little slow to mentation, but not too bad at all. He denies discomfort at the present time. He has no shortness of breath. No nausea or vomiting. His blood pressure is 108/62 with a pulse of 69, respirations are 11. He has some mild scleral icterus. His extraocular muscles are intact. His skin is somewhat atrophic. He has palmar erythema. There are no spider angiomata noted. There is not really caput medusae, but there were a couple of dilated veins under the skin on the upper abdomen and lower chest. With positive fluid wave, I think I could just barely ballot the liver margin just below the costal margin in the midclavicular line. There was trace edema. I noticed no neuromuscular irritability such as asterixis. LABORATORY DATA: Review of his laboratory studies reveals a white count of 8.5 , hemoglobin of 7. Pro time of 2.04. Sodium 129, potassium of 4.4, total CO2 of 26, chloride 99, BUN 32 with a creatinine of 1.91 down from a maximum of 2.36 , glucose 109, calcium 8.5 with an albumin of 3.0. AST 351, ALT 99, bilirubin 6.5. The ammonia for today was not done, will be repeated. There were 171 white cells in his peritoneal fluid, but 51% of them were lymphocytes and 35% monocytes and so I do not think we have a diagnosis of spontaneous bacterial peritonitis. IMPRESSION: 1. Cirrhosis with ascites. 2. I think there is probably a component of alcoholic hepatitis here with his elevated transaminases. 3. Gastrointestinal bleeding. 4. Duodenal ulcers. 5. Hypothyroidism. 6. History of gout. PLAN: At the present time, I actually would resume the previously prescribed octreotide. While it is true that octreotide has a value to esophageal bleeding , there was also a value to the renin-angiotensin system retention of salt and water with ascites formation. In addition, octreotide improves, the responsiveness to midodrine and other vasopressors. I would probably increase his midodrine dose at the present time, and at some point, in the near future we should see a urinary sodium and potassium and begin the process of administration of Aldactone. It would be reasonable, but not required to start him on some erythropoietin in order to help out with his anemia. I have discussed the case with Dr. Ochoa. [id number]/[facility] #: [id number] YAMILET
[2018-06-14] MEDS: CMC:Midodrine (NF) 5 MG TAB PO SCH (20:49)
[2018-06-14] MEDS: cefTRIAXone(*) 1 GM in NS 0.9% 50 ML* 50 ML IVPB SCH (21:24)
[2018-06-15] MEDS: CMC:Midodrine (NF) 5 MG TAB PO SCH ×3 (00:44→16:59)
[2018-06-15] MEDS: Pantoprazole* 80 mg IN NS 80 MG/250 ML BAG IVPB SCH ×2 (00:47→11:06)
[2018-06-15] MEDS: Levothyroxine TAB* 75 MCG TAB PO SCH (05:42)
[2018-06-15 05:58] LABS: INR 1.91 (0.77-1.02)
[2018-06-15 05:59] LABS: ABS Basophils 0.1 10^3/ul (0-0.2); ABS Eosinophils 0.2 10^3/ul (0-0.6); ABS Monocytes 1.2 10^3/ul (0-0.8); ABS Neutrophils 6.4 10^3/ul (1.5-7.7); ABS Nucleated RBC 0 10^3/ul; Hematocrit 24 % (42-52); Hemoglobin 8.5 g/dl (14.0-18.0); Lymphocyte % 11.4 %; Mean Corpuscular HGB Conc 35 g/dl (31-36); Mean Corpuscular Hemoglobin 35 pg (27-31); Mean Corpuscular Volume 101 fL (80-94); Nucleated Red Blood Cells % 0.1; Platelet Count 91 10^3/ul (150-450); Red Blood Count 2.42 10^6/ul (4.00-5.40); Red Cell Distribution Width 24 % (10.5-15)
[2018-06-15 06:11] LABS: Albumin 2.8 g/dL (3.2-5.2); Albumin/Globulin Ratio 1.5 (1-3); BUN/Creatinine Ratio 17.3 (8-20); Calcium 8.6 mg/dL (8.6-10.3); EGFR Non-African American 50.8 (>60); Globulin 1.9 g/dL (2-4); Indirect Bilirubin 3.1 mg/dL (0.3-1.0); Magnesium 1.5 mg/dL (1.9-2.7); Potassium 4.1 mmol/L (3.5-5.0); Total Bilirubin 5.1 mg/dL (0.2-1.0); Total Protein 4.7 g/dL (6.4-8.9)
[2018-06-15] MEDS ORDERED: Magnesium Sulfate IV* 3 GM in NS 0.9% 100 ML* 100 ML IVPB ONE (08:16)
[2018-06-15] MEDS: Octreotide Acetate* 500 MCG in NS 0.9% 100 ML* 100 ML IVPB SCH (10:17)
--- NOTE | 2018-06-15 13:15 | PN ---
Subjective Date of Service: 06/15/18 Interval History: HOSPITALIST PROGRESS NOTE Patient seen and examined at bedside. Care reviewed and d/w Barbara Oliveros RN. He feels well today. Denies abdominal pain, N/V, tolerating diet. No further reports of bleeding. Family History: Unchanged from Admission Social History: Unchanged from Admission Past Medical History: Unchanged from Admission Objective Active Medications: Ceftriaxone Sodium 1 gm/ (Sodium Chloride) 50 mls @ 200 mls/hr IVPB Q24H [facility] Stop: 06/17/18 20:59 Last Admin: 06/14/18 21:24 Dose: 200 mls/hr Pantoprazole Sodium (Protonix Iv Bag*) 80 mg in 250 mls @ 25 mls/hr IVPB Q10H [facility] Last Admin: 06/15/18 11:06 Dose: 25 mls/hr Octreotide Acetate 500 mcg/ (Sodium Chloride) 101 mls @ 10.1 mls/hr IVPB Q10H [facility] Last Admin: 06/15/18 10:17 Dose: 10.1 mls/hr Lactulose (Lactulose*) 30 ml PO Q6H [facility] Last Admin: 06/15/18 09:22 Dose: 30 ml Levothyroxine Sodium (Synthroid Tab*) 75 mcg PO DAILY@0600 [facility] Last Admin: 06/15/18 05:42 Dose: 75 mcg Midodrine (Midodrine (Nf)) 7.5 mg PO Q8H [facility]; Protocol Last Admin: 06/15/18 09:20 Dose: 7.5 mg Ondansetron HCl (Zofran Inj*) 4 mg IV Q6H PRN PRN Reason: NAUSEA Last Admin: 06/12/18 22:10 Dose: 4 mg Vital Signs - 8 hr 06/15/18 06/15/18 06/15/18 07:38 08:00 08:15 Temperature 97.3 F 97.3 F Pulse Rate 67 67 Respiratory 16 18 16 Rate Blood Pressure 136/52 136/52 (mmHg) O2 Sat by Pulse 94 94 Oximetry 06/15/18 11:17 Temperature 97.7 F Pulse Rate 69 Respiratory 16 Rate Blood Pressure 146/53 (mmHg) O2 Sat by Pulse 93 Oximetry Oxygen Devices in Use Now: None Appearance: Elderly gentleman lying in bed in [facility]. Eyes: - - Mild scleral icterus Ears/Nose/Mouth/Throat: Mucous Membranes Moist Neck: Trachea Midline Respiratory: Symmetrical Chest Expansion and Respiratory Effort, - - BS+ bilaterally diminished in bases Cardiovascular: RRR - Normal S1 and S2 Abdominal: - - Soft, distended, ascites is present, BS+ Extremities: - - BIlateral LE pitting edema Neurological: Alert and Oriented x 3, NL Muscle Strength and Tone Result Diagrams: 06/15/18 05:40 06/15/18 05:40 Microbiology and Other Data: Microbiology 06/13/18 09:20 Gram Stain - Final Ascites Fluid Body Fluid Culture - Preliminary No Growth Day 2 06/13/18 11:29 CLOtest - Final Gastric Antrum 06/12/18 22:42 Nasal Screen MRSA (PCR) - Final Nasal Mrsa Not Detected Assess/Plan/Problems-Billing Assessment: Mr Mcghee is a 67yo M with PMH of ETOH related liver cirrhosis, HLD, gout, hypothyroidism, who was transferred from [place] due to GI bleed. - Patient Problems (1) GI bleed Comment: - EGD showed no active bleeding and no varices, but positive for portal hypertensive gastropathy and duodenal ulcers (likely source of bleed). - S/p 1 PRBC and H/H remains stable. - Continue PPI. - CLOtest is negative. (2) Duodenal ulcer Comment: - Continue PPI. (3) Blood loss anemia Comment: - Continue to monitor H/H. (4) Liver cirrhosis Comment: - Decompensated at this time. - Continue Ceftriaxone for SBP prophylaxis. - D/c octreotide, continue Midodrine and start Aldactone. - Albumin is 2.8. (5) Hepatic encephalopathy Comment: - Ammonia down to 105 and MS is improving. - Continue Lactulose. (6) REBEKAH (acute kidney injury) Comment: - Improving. - Continue to monitor renal function. (7) Hypothyroid Comment: - Continue Levothyroxine. (8) DVT prophylaxis Comment: - Pharmacological prophylaxis contraindicated in the setting of GI bleed. - SCDs. (9) Full code status
[2018-06-15] MEDS: Spironolactone TAB* 25 MG PO SCH (17:00)
[2018-06-15] MEDS: cefTRIAXone(*) 1 GM in NS 0.9% 50 ML* 50 ML IVPB SCH (21:09)
[2018-06-15] MEDS: Pantoprazole IV* 40 MG IV SCH (21:13)
[2018-06-16] MEDS: CMC:Midodrine (NF) 5 MG TAB PO SCH ×3 (01:01→15:32)
[2018-06-16] MEDS: Levothyroxine TAB* 75 MCG TAB PO SCH (05:54)
[2018-06-16 06:17] LABS: INR 1.83 (0.77-1.02)
[2018-06-16 06:26] LABS: Hematocrit 25 % (42-52); Hemoglobin 8.4 g/dl (14.0-18.0); Mean Corpuscular HGB Conc 34 g/dl (31-36); Mean Corpuscular Hemoglobin 34 pg (27-31); Mean Corpuscular Volume 101 fL (80-94); Mean Platelet Volume 7.2 fL (7.4-10.4); Platelet Count 97 10^3/ul (150-450); Red Blood Count 2.44 10^6/ul (4.00-5.40); Red Cell Distribution Width 24 % (10.5-15); White Blood Count 9.6 10^3/ul (3.5-10.8)
[2018-06-16 06:32] LABS: Albumin 2.5 g/dL (3.2-5.2); Albumin/Globulin Ratio 1.1 (1-3); BUN/Creatinine Ratio 13.8 (8-20); Calcium 8.5 mg/dL (8.6-10.3); EGFR Non-African American 58.5 (>60); Globulin 2.3 g/dL (2-4); Potassium 4.2 mmol/L (3.5-5.0); Total Bilirubin 4.1 mg/dL (0.2-1.0); Total Protein 4.8 g/dL (6.4-8.9)
[2018-06-16 06:55] LABS: Immature Granulocytes 3 % (0-9); Lymphocytes % 7 %; Metamyelocytes % 1 % (0-2); Monocytes % 5 %; Myelocytes % 2 % (0-1); Neutrophil % 83 %
[2018-06-16 06:56] LABS: Burr Cells 1+
[2018-06-16 06:58] LABS: ABS Basophils 0.1 10^3/ul (0-0.2); ABS Eosinophils 0.1 10^3/ul (0-0.6); ABS Neutrophils 8.2 10^3/ul (1.5-7.7)
[2018-06-16] MEDS: Pantoprazole IV* 40 MG IV SCH ×2 (08:48→20:55)
--- NOTE | 2018-06-16 13:32 | PN ---
Subjective Date of Service: 06/16/18 Interval History: HOSPITALIST PROGRESS NOTE Patient seen and examined at bedside. Care reviewed and d/w Kelly Burger RN. He offers no new complaints today. Abdome is still distended. Denies pain or dyspnea, but feels his belly and legs are "tight". Family History: Unchanged from Admission Social History: Unchanged from Admission Past Medical History: Unchanged from Admission Objective Active Medications: Ceftriaxone Sodium 1 gm/ (Sodium Chloride) 50 mls @ 200 mls/hr IVPB Q24H [facility] Stop: 06/17/18 20:59 Last Admin: 06/15/18 21:09 Dose: 200 mls/hr Lactulose (Lactulose*) 30 ml PO Q6H [facility] Last Admin: 06/16/18 08:48 Dose: 30 ml Levothyroxine Sodium (Synthroid Tab*) 75 mcg PO DAILY@0600 [facility] Last Admin: 06/16/18 05:54 Dose: 75 mcg Midodrine (Midodrine (Nf)) 7.5 mg PO Q8H [facility]; Protocol Last Admin: 06/16/18 08:50 Dose: 7.5 mg Ondansetron HCl (Zofran Inj*) 4 mg IV Q6H PRN PRN Reason: NAUSEA Last Admin: 06/12/18 22:10 Dose: 4 mg Pantoprazole Sodium (Protonix Iv*) 40 mg IV Q12H [facility] Last Admin: 06/16/18 08:48 Dose: 40 mg Spironolactone (Aldactone Tab*) 50 mg PO DAILY@1600 [facility] Last Admin: 06/15/18 17:00 Dose: 50 mg Vital Signs - 8 hr 06/16/18 06/16/18 06/16/18 07:49 08:00 11:41 Temperature 98.3 F Pulse Rate 78 97 Respiratory 16 16 Rate Blood Pressure 130/54 (mmHg) O2 Sat by Pulse 94 95 Oximetry Oxygen Devices in Use Now: None Appearance: Pleasant gentleman lying in bed in [facility]. Eyes: - - + scleral icterus Ears/Nose/Mouth/Throat: Mucous Membranes Moist Neck: Trachea Midline Respiratory: Symmetrical Chest Expansion and Respiratory Effort, Clear to Auscultation Cardiovascular: RRR - Normal S1 and S2 Abdominal: - - Distended, NT, + ascites, BS+ Extremities: - - Moderate to severe LE edema Neurological: Alert and Oriented x 3, NL Muscle Strength and Tone Result Diagrams: 06/16/18 05:52 06/16/18 05:52 Microbiology and Other Data: Microbiology 06/13/18 09:20 Gram Stain - Final Ascites Fluid Body Fluid Culture - Preliminary No Growth Day 2 06/13/18 11:29 CLOtest - Final Gastric Antrum 06/12/18 22:42 Nasal Screen MRSA (PCR) - Final Nasal Mrsa Not Detected Assess/Plan/Problems-Billing Assessment: Mr Mcghee is a 67yo M with PMH of ETOH related liver cirrhosis, HLD, gout, hypothyroidism, who was transferred from [place] due to GI bleed. - Patient Problems (1) GI bleed Comment: - EGD showed no active bleeding and no varices, but positive for portal hypertensive gastropathy and duodenal ulcers (likely source of bleed). - Nurse describes small amount of blood with BM today, likely old blood - continue to monitor H/H. - S/p 1 PRBC and H/H remains stable. - Continue PPI. - CLOtest is negative. (2) Duodenal ulcer Comment: - Continue PPI. (3) Acute blood loss anemia Comment: - Continue to monitor H/H. (4) Liver cirrhosis Comment: - Decompensated at this time. - Continue Ceftriaxone for SBP prophylaxis. - Continue Midodrine and Aldactone. - Albumin is 2.8. - Plan for therapeutic paracentesis today. (5) Hepatic encephalopathy Comment: - Ammonia down to 89 and MS is at baseline. - Will decrease Lactulose. (6) REBEKAH (acute kidney injury) Comment: - Improving. - Continue to monitor renal function. (7) Hypothyroid Comment: - Continue Levothyroxine. (8) DVT prophylaxis Comment: - Pharmacological prophylaxis contraindicated in the setting of GI bleed. - SCDs. (9) Full code status (10) Physical deconditioning Comment: - PT evaluation - may need SNF on discharge. Status and Disposition: Inpatient.
[2018-06-16] MEDS: Spironolactone TAB* 25 MG PO SCH (15:32)
[2018-06-16 15:39] LABS: Hematocrit 26 % (42-52); Hemoglobin 8.8 g/dl (14.0-18.0)
[2018-06-16] MEDS: cefTRIAXone(*) 1 GM in NS 0.9% 50 ML* 50 ML IVPB SCH (20:53)
--- NOTE | 2018-06-16 22:56 | PRO ---
CC: Dr. Machado; Dr. Roselia Nolasco; Dr. Naseem Alfredo; Dr. Yash Houston PROCEDURE REPORT: DATE OF PROCEDURE: 06/16/18 SURGEON: Manjinder Machado MD RISK CONTROL ANALYST: None. ANESTHESIOLOGIST: None. PREPROCEDURE DIAGNOSIS: Ascites. POSTPROCEDURE DIAGNOSIS: Ascites. PROCEDURE PERFORMED: Sono-guided paracentesis. DESCRIPTION OF PROCEDURE: The patient was brought to the outpatient procedure room. The abdomen was interrogated with ultrasound and the right upper quadrant was found to have a large quantity of flui d with no nearby bowel. The procedure is discussed with the patient and with his family and they are agreeable to paracentesi s. Therefore, the right upper quadrant was prepped with antiseptic, draped in a sterile fashion. Local infiltrative anesthesia was carried out and skinny needle used to identify clear-yellow fluid. The p aracentesis catheter 8-Maltese was placed in the right upper quadrant without any difficulty. Clear-y ellow fluid was forthcoming. It was hooked to the suction bottle. A total of approximately 8 L was forthcoming before it ceased to drain. He tolerated this very well. Blood pressure was good. He fe lt so much better with the fluid decreasing and the catheter was removed, bandage was placed, and he is sent back up to the medical floor without complication. [id number]/[facility] #: [id number]
[2018-06-17 00:31] LABS: Albumin Level Body Fluid 874 mg/dL
[2018-06-17] MEDS: CMC:Midodrine (NF) 5 MG TAB PO SCH ×3 (00:31→15:53)
[2018-06-17] MEDS: Levothyroxine TAB* 75 MCG TAB PO SCH (05:44)
[2018-06-17 06:00] LABS: Hematocrit 24 % (42-52); Hemoglobin 8.3 g/dl (14.0-18.0); Mean Corpuscular HGB Conc 34 g/dl (31-36); Mean Corpuscular Hemoglobin 35 pg (27-31); Mean Corpuscular Volume 101 fL (80-94); Mean Platelet Volume 7.3 fL (7.4-10.4); Platelet Count 80 10^3/ul (150-450); Red Blood Count 2.41 10^6/ul (4.00-5.40); Red Cell Distribution Width 24 % (10.5-15); White Blood Count 7.5 10^3/ul (3.5-10.8)
[2018-06-17 06:23] LABS: Albumin 2.4 g/dL (3.2-5.2); Albumin/Globulin Ratio 1.3 (1-3); BUN/Creatinine Ratio 13.1 (8-20); EGFR Non-African American 75.2 (>60); Globulin 1.9 g/dL (2-4); Potassium 3.9 mmol/L (3.5-5.0); Total Bilirubin 3.7 mg/dL (0.2-1.0); Total Protein 4.3 g/dL (6.4-8.9)
[2018-06-17 06:34] LABS: ABS Basophils 0.1 10^3/ul (0-0.2); ABS Eosinophils 0.2 10^3/ul (0-0.6); ABS Neutrophils 5.2 10^3/ul (1.5-7.7); ABS Nucleated RBC 0 10^3/ul; Eosinophil % 2.9 %; Lymphocyte % 12.6 %; Nucleated Red Blood Cells % 0.1
[2018-06-17 06:35] LABS: Burr Cells 1+
[2018-06-17] MEDS: Pantoprazole IV* 40 MG IV SCH (10:03)
[2018-06-17] MEDS ORDERED: Albumin Human 25%* 50 GM/200 ML BTL IV ONE (11:30)
[2018-06-17 15:50] VITALS: BP 130/54
[2018-06-17] MEDS: Spironolactone TAB* 25 MG PO SCH (15:54)
--- NOTE | 2018-06-17 22:49 | DS ---
CC: Dr. Analy Hernandez; Dr. Diana Lancaster; Dr. Patricio Villasenor; Dr. Manjinder Machado; Dr. Roselia foss DISCHARGE SUMMARY: DATE OF ADMISSION: DATE OF DISCHARGE: 06/17/18 DISCHARGE DIAGNOSES: Are as follows: 1. GI bleed secondary to portal hypertensive gastropathy and duodenal ulcer. 2. History of liver cirrhosis. DISCHARGE MEDICATIONS: Are as follows: 1. Lactulose 30 mL p.o. b.i.d. 2. Midodrine 7.5 mg p.o. q.8. 3. Spironolactone 50 mg p.o. daily. 4. Allopurinol 100 mg p.o. daily. 5. Atorvastatin 10 mg p.o. daily. 6. Cholecalciferol 400 units p.o. daily. 7. Synthroid 75 mcg p.o. daily. 8. Multivitamin 1 tab p.o. daily. 9. Pantoprazole 40 mg p.o. b.i.d. 10. Sucralfate 1 g tab p.o. a.c. h.s. HISTORY OF PRESENT ILLNESS/HOSPITAL COURSE: The patient is a 67-year-old gentleman with a history of alcoholic cirrhosis, who presented to the hospital with concerns for bright red blood per rectum from [facility]. The patient was seen in consultation by Dr. Alfredo, who then saw the patient on 06/13/18 for an EGD where he found mild portal hypertensive gastropathy and duodenal ulce rs as a possible source of bleed. The patient has also seen been by Dr. Houston in consultation on who recommended an increase in his midodrine which he is currently on. Of note, the day prior to discharge he had also underwent ultrasound- guided diagnostic and therapeutic paracentesis where reportedly 8 L of fluid has been taken out. However, I have given him 50 g of IV albumin on discharg e given recent large volume paracentesis. He also has received prophylactic antibiotic regimen for S BP given his recent GI bleed. He has had at least 6 days of antibiotic on Rocephin and we will disco ntinue this at this time given cultures of ascetic fluid is otherwise unremarkable with no signs SBP. The patient had been advised to follow up and/or call his PCP within 3 days post- discharge. Follow up with Dr. Alfredo in 2 weeks post-discharge and to call his office to make/confirm his appointment. He had been advised to call his PCP if his symptoms resume or develop new ones or feel unwell for a ny reason. If the PCP cannot entertain him due to scheduling issues alone, he was advised to call [facility] if the issue is nonemergent. He was advised to call my office regarding any questi ons, concerns, or further clarifications regarding his discharge plans and/or prescriptions and to ta ke his medications as prescribed. REVIEW OF SYSTEMS: The patient denied any recent headaches, dizziness, fevers, chills, nausea, vomit ing, chest pain, shortness of breath, increased cough and/or sputum production, abdominal pain, diarr hea, constipation, pain and/or increased frequency of urination, myalgias or arthralgias, throat pain , or new skin lesions. The rest of the 14-point review of systems is otherwise unremarkable. PHYSICAL EXAMINATION: Shows the most recent vital signs of records with blood pressure of 133/47, 69 beats per minute heart rate, 16 per minute respiratory rate, a temperature of 97.8 degrees Fahrenhei t, saturating at 100% on room air. General Appearance: The patient is awake, alert, and oriented x3 , not in acute distress. HEENT: Normocephalic, atraumatic. PERRLA. Extraocular muscles intact. Ne gative for icterus. Moist oral mucosa. Negative throat erythema. Neck is soft, supple with no cerv ical lymphadenopathy. No JVD. Heart: S1, S2 within normal limits. Regular rate and rhythm. No mur murs, rubs, and gallops. Chest: Clear to auscultation bilaterally. Good air entry. No wheezes, ra les, or rhonchi. Abdomen is soft, slightly distended. Normoactive bowel sounds x4 quadrants. Extre mities: No cyanosis or clubbing with 1+ bilateral lower extremity edema. Psychiatric: No active psy chosis, depression, suicidal or homicidal ideation. Skin is warm to touch. TIME SPENT: The total time spent evaluating the patient, reviewing pertinent data, and appropriate d ocumentation is 55 minutes. [id number]/[facility] #: [id number]
== END 2018-06-17 17:40 | disposition home or self-care (01) | DRG 378 ==
LOC: ED 18:07 → ICU 20:51 → MED 06-14 14:37
PROVIDERS: ADMIT Internal Medicine; ATTEND Student in an Organized Health Care Education/Training Program
PROC: 30233K1 Transfusion of Nonautologous Frozen Plasma into Peripheral Vein, Percutaneous Approach (ICD-10-PCS; principal; 2018-06-12)
PROC: 30233N1 Transfusion of Nonautologous Red Blood Cells into Peripheral Vein, Percutaneous Approach (ICD-10-PCS; 2018-06-12)
PROC: 0W9G3ZZ Drainage of Peritoneal Cavity, Percutaneous Approach (ICD-10-PCS; 2018-06-13)
PROC: 0DD68ZX Extraction of Stomach, Via Natural or Artificial Opening Endoscopic, Diagnostic (ICD-10-PCS; 2018-06-13)
PROC: 05HM33Z Insertion of Infusion Device into Right Internal Jugular Vein, Percutaneous Approach (ICD-10-PCS; 2018-06-14)
PROC: 0W9G3ZZ Drainage of Peritoneal Cavity, Percutaneous Approach (ICD-10-PCS; 2018-06-16)
DX: K26.4 Chronic or unspecified duodenal ulcer with hemorrhage (principal); N17.9 Acute kidney failure, unspecified; K76.6 Portal hypertension; D62 Acute posthemorrhagic anemia; R16.1 Splenomegaly, not elsewhere classified; K70.31 Alcoholic cirrhosis of liver with ascites; K72.90 Hepatic failure, unspecified without coma; K70.11 Alcoholic hepatitis with ascites; E03.9 Hypothyroidism, unspecified; E78.5 Hyperlipidemia, unspecified; K31.89 Other diseases of stomach and duodenum; K40.90 Unilateral inguinal hernia, without obstruction or gangrene, not specified as recurrent; R09.02 Hypoxemia; L40.9 Psoriasis, unspecified; F17.210 Nicotine dependence, cigarettes, uncomplicated; M10.9 Gout, unspecified; Z79.899 Other long term (current) drug therapy; Z91.013 Allergy to seafood
CPT/HCPCS: 36415; 71045; 80048; 80053; 80076; 82042; 82140; 82150; 82570; 82945; 83735; 83930; 83935; 84300; 85014; 85018; 85025; 85060; 85610; 85730; 86850; 86900; 86901; 86922; 86927; 87070; 87077; 87205; 87641; 88112; 89051; 99156; 99285; A9270-GY; G8978-GP-CI; G8979-GP-CI; G8980-GP-CI; J0696; J0885; J2250; J2354; J2405; J3010; J3430; J3475; P9016; P9017; P9047

== ENCOUNTER → 2018-07-07 13:47 | Day surgery (SDC) | payer MEDICARE, OTHER ==
[~2018-07-07 13:47] MED LIST: Albumin Human 25%* 25 GM/100 ML IV ONE; Lidocaine 1% INJ* 10 MG/ML 30 ML SDV ONE
--- NOTE | 2018-07-07 21:09 | OP ---
CC: Dr. Alfredo * DATE OF OPERATION: 07/07/18 - [facility] DATE OF : 48 SURGEON: Dr. Manjinder Machado. PRE-OP DIAGNOSIS: Ascites POST-OP DIAGNOSIS: Ascites OPERATIVE PROCEDURE: Planned Paracentesis. Ultrasound. Suture of paracentesis site. INDICATIONS: Mr. Mcghee is a 67-year-old male with longstanding alcoholic cirrhosis who has had recurrent ascites of late. He had a paracentesis done 08/30 and drained about 5 L at that time. He had recurrence of the ascites and was drained on 07/05/18 at [facility]; had about 5 L drained. The patient was told at that time that he still had a lot of fluid remaining in there, but that it was not safe to drain more than 5 L at a time and so they referred back to the outpatient clinic here for consideration of repeat paracentesis. Of note, the site of the previous paracentesis in the right lower abdomen has continued to drain ascites fluids for the last 2 days to the point that they have been saturating towels trying to capture the drainage. On examination today, the abdomen is obese, not particularly tense. It is hard to say how much ascites there is on exam. He feels a lot better than he did before the 5 L were taken off the other day and does feel like his appetite has returned to normal. I decided to perform bedside ultrasonography and the abdomen was scanned in all 4 quadrants. There was some ascites fluid noted, but in most cases the pocket was only about 1 cm or so on top of the bowel before the abdominal wall and it was felt that there was really not a large volume of ascites in there. I discussed it with his daughter and with him, and it seems like the major problem right now is the persistent drainage of ascites from the right lower quadrant site rather than the amount of ascites in the abdomen. Therefore, it was decided that a suture would be placed to contain the drainage from the right lower quadrant site. DESCRIPTION OF PROCEDURE: Therefore, the area was prepped with antiseptic, draped in a sterile fashion. Local infiltrative anesthesia 1% lidocaine with epinephrine was administered and a [id number] of 2-0 silk suture was placed at the site of the right lower quadrant puncture. This stopped the ascites from draining. A bandage was placed. He was discharged with instructions and I am happy to see him back in the future as the need arises. He will continue to follow with Dr. Alfredo for chronic management and his daughter, who is in the healthcare field, will take the suture out in about a week at home. [id number]/[facility] #: [id number] YAMILET
== END | disposition home or self-care (01) ==
LOC: OR 13:47
PROVIDERS: ATTEND Surgery
DX: K70.31 Alcoholic cirrhosis of liver with ascites (principal); Z53.8 Procedure and treatment not carried out for other reasons
CPT/HCPCS: P9047

== ENCOUNTER 2018-10-13 09:52 | Inpatient (IN) | payer MEDICARE, OTHER ==
[2018-10-13] MEDS ORDERED: Ondansetron INJ* 2 MG/ML VIAL IV PRN (11:53)
[2018-10-13] MEDS ORDERED: Allopurinol TAB* 100 MG PO PRN (11:59)
[2018-10-13 13:26] LABS: Hematocrit 22 % (42-52); Mean Corpuscular HGB Conc 36 g/dL (31-36); Mean Corpuscular Hemoglobin 38 pg (27-31); Mean Corpuscular Volume 106 fL (80-94); Red Cell Distribution Width 16 % (10.5-15); White Blood Count 8.9 10^3/uL (3.5-10.8)
[2018-10-13 13:27] LABS: INR 2.01 (0.82-1.09)
[2018-10-13 13:38] LABS: Albumin 2.7 g/dL (3.2-5.2); Albumin/Globulin Ratio 1.1 (1-3); BUN/Creatinine Ratio 29.1 (8-20); Calcium 8.7 mg/dL (8.6-10.3); EGFR African American 30.7 (>60); EGFR Non-African American 25.3 (>60); Globulin 2.4 g/dL (2-4); Magnesium 2.1 mg/dL (1.9-2.7); Total Bilirubin 5.3 mg/dL (0.2-1.0); Total Protein 5.1 g/dL (6.4-8.9); Troponin I 0.03 ng/mL (<0.04)
[2018-10-13 13:41] LABS: Potassium 5.8 mmol/L (3.5-5.0)
[2018-10-13 14:05] LABS: ABS Basophils 0.1 10^3/ul (0-0.2); ABS Eosinophils 0.1 10^3/ul (0-0.6); ABS Lymphocytes 0.6 10^3/ul (1.0-4.8); ABS Monocytes 1.4 10^3/ul (0-0.8); ABS Neutrophils 6.7 10^3/ul (1.5-7.7); Eosinophil % 1.5 %; Lymphocyte % 6.3 %; Platelet Count Platelets clumped. 10^3/uL (150-450)
[2018-10-13] MEDS ORDERED: Ondansetron INJ* 2 MG/ML VIAL ONE (14:28)
[2018-10-13] MEDS ORDERED: cefTRIAXone(*) 2 GM in NS 0.9% 100 ML* 100 ML IVPB ONE (14:30)
--- NOTE | 2018-10-13 14:54 | HP ---
CC: Dr. Roselia Nolasco; Dr. Rigo Mueller; Dr. Naseem Alfredo; Dr. Manjinder Machado * HISTORY AND PHYSICAL: DATE OF ADMISSION: 10/13/18 PRIMARY CARE PROVIDER: Dr. Roselia Nolasco MY ATTENDING WHILE IN THE HOSPITAL: Dr. Etelvina Aguero * (DICTATED BY COLT MEI) CONSULTING SENIOR PUBLICATIONS SPECIALIST: Dr. Rigo Mueller CONSULTING GENERAL SURGEON: Dr. Manjinder Machado OUTPATIENT SENIOR PUBLICATIONS SPECIALIST: Dr. Naseem Alfredo CHIEF COMPLAINT: Tachycardia. HISTORY OF PRESENT ILLNESS: Mr. Mcghee is a 67-year-old male with a past medical history significant for cirrhosis due to alcoholism, who was recently admitted to this hospital for a GI bleed related to portal hypertensive gastropathy with duodenal ulcers and at that was also treated for spontaneous bacterial peritonitis. The patient was evaluated for a transplant through [facility] and was not deemed to be a candidate. The patient at that time opted for hospice care; however, due to the refractory ascites, the patient has been needing large volume paracentesis every couple of weeks through [facility]. The patient did not receive albumin infusions with this. It is unclear why as this was recommended through his nanotechnology engineering technologist. The patient has been feeling in general state of health except for possibly feeling somewhat weaker. The patient denies fevers, chills , chest pain, shortness of breath, palpitations, abdominal pain. The patient does have 2 loose bowel movements a day. There is no blood or black or tarry material in them. The patient was today scheduled to come the the OR for a PleurX catheter for ease of draining the patient's peritoneal fluid with Dr. Manjinder Machado and at that time was found to be tachycardic with heart rates in the one-teens to 120s. The patient did not feel dizzy upon standing. The patient again had no pain. No altered mental status. The patient's wishes were clarified with him and his [id number] and they said they would be willing to undergo hospital admission and peritonitis and were very concerned him being sent home with the possibility of hemodynamic instability. This case was discussed with Dr. Rigo Mueller of Gastroenterology, who recommended treating this initially as SBP with antibiotics, albumin infusion, hospital admission, and diagnostic paracentesis. PAST MEDICAL HISTORY: History of alcoholism, alcoholic cirrhosis, history of GI bleed related to portal hypertensive gastropathy, chronic kidney disease likely related to hepatorenal syndrome type 2, history of hepatic encephalopathy , hypothyroidism, gout, and hyperlipidemia. PAST SURGICAL HISTORY: History of multiple paracenteses, history of EGD. MEDICATIONS: On admission: 1. Multi-Sergio 1 tab p.o. daily. 2. Vitamin D 400 units p.o. daily. 3. Atorvastatin 10 mg p.o. daily. 4. Allopurinol 100 mg p.o. daily as needed. 5. Synthroid 75 mcg p.o. daily. 6. Lactulose 30 mL p.o. q.12 hours. 7. Midodrine 7.5 mg p.o. q.8 hours. 8. Pantoprazole 40 mg p.o. b.i.d. 9. Spironolactone 50 mg p.o. daily. 10. Sucralfate 1 g p.o. a.c., h.s. ALLERGIES: SHELLFISH. FAMILY HISTORY: Noncontributory. SOCIAL HISTORY: The patient does not smoke. The patient previously drank, but has not recently drank since his diagnosis of cirrhosis. The patient denies illicit drug use. The patient lives with his , who is his healthcare proxy. The patient was accompanied by his [id number]. REVIEW OF SYSTEMS: A 14-point review of systems were reviewed, is negative except other than above in the HPI. PHYSICAL EXAMINATION GENERAL: The patient is a 67-year-old male, who appears older than stated age, he is markedly jaundiced and is sitting in the bed, in no acute distress. VITAL SIGNS: At the time of evaluation, temperature 98.2, pulse rate 120, blood pressure 108/62, respiratory rate 20, oxygen saturation 98% on room air. HEENT: Head: Normocephalic, atraumatic. Sclerae anicteric. No conjunctival injection. Nasal mucosa moist. Oral mucosa moist. No pharyngeal erythema, discharge, or exudate. NECK: Supple, nontender. No lymphadenopathy. No carotid bruits auscultated. No JVD. RESPIRATORY: Clear to auscultation bilaterally. No wheezes, rales, or rhonchi. Good air exchange bilaterally. CARDIAC: Tachycardiac. Regularly regular rhythm. No clicks, murmurs, gallops , or rubs. Pulses 2+ in the bilateral dorsalis pedis, posterior tibial, and radial areas. 2+ bilateral pitting edema. No bilateral calf tenderness. ABDOMEN: Distended, nontender. Bowel sounds present. Normoactive in all 4 quadrants. Unable to palpate the liver or the spleen. No hepatojugular reflux. GENITOURINARY: No suprapubic or CVA tenderness. SKIN: Jaundiced. No other rash. NEURO: Cranial nerves II through XII intact. No fecal deficits. Alert and oriented x3. PSYCHIATRIC: Pleasant and cooperative. DIAGNOSTIC STUDIES/LAB DATA: Chest x-ray is pending. ASSESSMENT AND PLAN: Mr. Mcghee is a 67-year-old male with a past medical history significant for end-stage alcoholic cirrhosis, previously cleared by hepatic encephalopathy and GI bleed due to portal hypertensive gastropathy, who will be admitted to the hospital for concern of spontaneous bacterial peritonitis and will be treated appropriately for that. 1. Tachycardia, concern for spontaneous bacterial peritonitis. The patient has none of the hallmark signs for spontaneous bacterial peritonitis except for unexplained tachycardia and borderline hypotension present his previous admission despite at that time having a GI bleed. The patient was not previously diagnosed with spontaneous bacterial peritonitis definitively, but was treated with 6 days of ceftriaxone during his admission in May. Patient mainly opted comfort care measures; however, the patient and his [id number] are in agreement that he would be willing to undergo hospital admission and antibiotics if indicated. This case was discussed with Dr. Rigo Mueller of Gastroenterology, who will see the patient in consultation, who recommended full treatment for spontaneous bacteria peritonitis with albumin infusion on day 1 and day 3 and appropriate antibiotics all of which have been ordered. The patient will have an EKG, will undergo a diagnostic paracentesis. The patient will have troponin pending. The patient will undergo cardiac testing to try to ascertain a cardiac origin for his tachycardia if indicated. If the patient's white blood cell count, PMN count is equal to or greater than 250 then the patient should undergo full treatment for spontaneous bacteria peritonitis. The patient will receive 1.5 g of albumin now with plans to repeat with 1 g/kg on day 3. The patient will have his diuretics held. The patient has a CMP pending. The patient previously had renal compromise likely related to his cirrhosis and was seen in consultation by Dr. Houston of Nephrology. This will be watched closely. We will continue the patient's Midodrine. The patient will be started on ceftriaxone 2 g q.24 hours at this time. 2. Hepatic cirrhosis. The patient's blood pressure is generally well. Continue the patient's Midodrine, albumin as above. Continue the patient's lactulose. The patient is not currently encephalopathic, there is no need to check an albumin at this time. The patient is adequately treated with his lactulose. 3. History of GI bleed. Continue the patient sucralfate and Protonix. 4. Hypothyroidism. Continue the patient's Synthroid. 5. Refractory ascites. The patient is on day 3, has no evidence of having spontaneous bacteria peritonitis. The patient likely will be have his PleurX catheter placed as was originally intended . 6. DVT prophylaxis. The patient will have heparin subcu. 7. FEN. The patient will have a heart-healthy diet without caffeine. The patient will have no fluids at this time except for albumin. 8. Disposition. The patient is admitted to observation. TIME SPENT: Approximately 75 minutes was spent on this admission, 30 of which was spent [id number] with the patient obtaining history and physical and discussing treatment plan. This plan has been discussed with my attending, Dr. Etelvina Aguero and she is in agreement. COLT MEI [id number]/[facility] #: [id number] YAMILET
[2018-10-13] MEDS: Heparin VIAL(*) 5000 UNITS/ML VIAL (FIVE THOUSAND) SUBCUT SCH ×2 (15:31→21:07)
[2018-10-13] MEDS ORDERED: Spironolactone TAB* 25 MG PO SCH (16:00)
[2018-10-13] MEDS ORDERED: ALBUMIN HUMAN 25% IV ONE (16:00)
[2018-10-13 16:28] LABS: Body Fluid Source Peritonial Fluid
[2018-10-13] MEDS: Atorvastatin* 10 MG TAB PO SCH (16:41)
[2018-10-13] MEDS: Sucralfate TAB* 1 GM PO SCH ×2 (16:41→21:04)
[2018-10-13] MEDS: Midodrine (NF) 5 MG TAB PO SCH ×2 (16:41→21:04)
[2018-10-13 17:29] LABS: Body Fluid Mono 20 %
--- NOTE | 2018-10-13 20:55 | CONS ---
CC: Naseem Alfredo MD; Roselia Nolasco MD * CONSULTATION REPORT: DATE OF CONSULT: 10/13/18 REQUESTING PRACTITIONER: Dr. Moiz Win. REASON FOR CONSULT: Cirrhosis, tachycardia, concern for SBP. HISTORY OF PRESENT ILLNESS: This is a 67-year-old male with a past medical history of alcoholic cirrhosis with decompensation who initially presented to [facility] today for a PleurX catheter placement for hospice care for end-stage liver disease. Prior to placing the catheter, he was noted to be hypotensive and tachycardic. The patient currently denies any abdominal pain. He states that his abdomen feels about the same as it normally does. He denies any black or blood in the stool. Denies any nausea or vomiting. He admits to some shortness of breath. Denies any fever, chills, or rigors. He admits to some peripheral edema. Denies any diarrhea or constipation. His goals of care were reviewed with the hospitalist prior to admission and he wishes to be admitted for comfort measures including potentially treating this tachycardia with consideration of antibiotics. He has opted not to pursue liver transplant at [facility] and he has chosen hospice. The remainder of the 14- point review of systems is grossly negative. PAST MEDICAL HISTORY: Alcoholic cirrhosis, history of portal hypertensive gastropathy, chronic kidney disease, hepatorenal syndrome, hepatic encephalopathy, hypothyroidism, gout, and hyperlipidemia. PAST SURGICAL HISTORY: EGD done in May of 2018, it revealed duodenal ulcerations and mild portal hypertensive gastropathy. No evidence of gastric varices or esophageal varices was visualized. HOME MEDICATIONS: Include: 1. Multivitamin. 2. Vitamin D. 3. Atorvastatin. 4. Allopurinol. 5. Synthroid. 6. Lactulose. 7. Midodrine. 8. Pantoprazole. 9. Spironolactone. 10. Sucralfate. ALLERGIES: Include SHELLFISH. FAMILY HISTORY: No family history of liver disease or GI cancer. SOCIAL HISTORY: Denies smoking, previous alcoholic but has not had a drink since diagnosed with cirrhosis. REVIEW OF SYSTEMS: Remainder of the 14-point review of systems is grossly negative except for as described in the HPI. PHYSICAL EXAM: Vital Signs: Initially pulse was 118, respiratory rate 24, he is 95% on room air, temperature 97.9. General: Alert and oriented to person, place, and time with mild sluggishness. HEENT: Atraumatic, normocephalic. Pupils equal, round, reactive to light. Conjunctivae are pink. Sclerae are icteric. Neck is supple. Cardiovascular: Tachycardic, S1, S2. Respiratory: Diminished at the base with rales. Abdomen: Mildly distended. Bowel sounds positive. There is shifting dullness appreciated. Extremities: 2+ bilateral pitting edema is appreciated. Skin: Jaundiced. Psychiatric: Appropriate mood and affect. DIAGNOSTIC STUDIES/LAB DATA: Hemoglobin is 8.0, WBC count is 8.9, INR is 2. Sodium is 124, potassium is 5.8, chloride 97, CO2 is 20, creatinine is 2.54. Total bilirubin is 5.30, AST 42, ALT 25, alkaline phosphatase 129, albumin 2.7. He has a diagnostic paracentesis with results pending. His MELD-Na score is 34. ASSESSMENT AND PLAN: This is a 67-year-old male with alcoholic cirrhosis who presented for a PleurX catheter and was found to be tachycardic with mild hypotension. 1. Tachycardia, unclear etiology, was visualized up to 125 and sinus in nature. Previously for procedures, he was presented in the low 80s and this is new for him. Given his ascites, I would have concern for spontaneous bacterial peritonitis. There is no evidence of overt bleeding at this point as there is no black or blood in the stool. Monitor stool for signs of gastrointestinal bleed; however, he does not have history of varices in the past. I think it is safe to hold on octreotide unless treating hepatorenal syndrome as directed by Nephrology. I would recommend a daily PPI given his history of duodenal ulcerations. Agree with empiric treatment of ceftriaxone and albumin on day 0 and day 3. Albumin should accompany his high volume paracentesis. If improved in the next few days, consideration could be made for placement of PleurX catheter and returning to hospice care. No gross signs of overt encephalopathy ; however, the mild sluggishness may be consistent with minimal encephalopathy. 2. Alcoholic cirrhosis decompensated with ascites, portal hypertensive gastropathy and history of spontaneous bacterial peritonitis. MELD-Na score is 34. The patient is not pursuing liver transplant. He has opted for hospice care but would prefer to be made comfortable including workup of his tachycardia and hypotension. Reasonable to treat empirically for spontaneous bacterial peritonitis. Awaiting results of culture. 3. Hyponatremia. Poor prognostic sign in cirrhosis. We will continue lactulose and midodrine. [id number]/[facility] #: [id number] YAMILET
[2018-10-13] MEDS: Pantoprazole TAB * 40 MG TAB PO SCH (21:04)
[2018-10-14] MEDS: Heparin VIAL(*) 5000 UNITS/ML VIAL (FIVE THOUSAND) SUBCUT SCH (05:17)
[2018-10-14] MEDS: Midodrine (NF) 5 MG TAB PO SCH ×3 (05:17→21:13)
[2018-10-14] MEDS: Levothyroxine TAB* 75 MCG TAB PO SCH (05:17)
[2018-10-14 07:11] LABS: Albumin 2.8 g/dL (3.2-5.2); Albumin/Globulin Ratio 1.3 (1-3); BUN/Creatinine Ratio 28.3 (8-20); Calcium 8.5 mg/dL (8.6-10.3); EGFR African American 28.3 (>60); EGFR Non-African American 23.4 (>60); Globulin 2.1 g/dL (2-4); Magnesium 2.2 mg/dL (1.9-2.7); Total Bilirubin 5.3 mg/dL (0.2-1.0); Total Protein 4.9 g/dL (6.4-8.9)
[2018-10-14 08:14] LABS: Hematocrit 20 % (42-52); Hemoglobin 7.2 g/dL (14.0-18.0); Mean Corpuscular HGB Conc 36 g/dL (31-36); Mean Corpuscular Hemoglobin 38 pg (27-31); Mean Corpuscular Volume 106 fL (80-94); Platelet Count 109 10^3/uL (150-450); Red Blood Count 1.92 10^6 /uL (4.18-5.48); Red Cell Distribution Width 16 % (10.5-15); White Blood Count 8.5 10^3/uL (3.5-10.8)
[2018-10-14 08:16] LABS: ABS Basophils 0.1 10^3/ul (0-0.2); ABS Eosinophils 0.2 10^3/ul (0-0.6); ABS Lymphocytes 0.4 10^3/ul (1.0-4.8); ABS Neutrophils 6.8 10^3/ul (1.5-7.7); Acanthocytes 2+; Eosinophil % 1.8 %; Lymphocyte % 4.3 %; Nucleated Red Blood Cells % 0.2; Schistocytes 1+
[2018-10-14] MEDS: Sucralfate TAB* 1 GM PO SCH ×4 (09:13→20:17)
[2018-10-14] MEDS: Cholecalciferol TAB* 400 UNIT PO SCH (09:13)
[2018-10-14] MEDS: Allopurinol TAB* 100 MG PO SCH (09:14)
[2018-10-14] MEDS: Pantoprazole TAB * 40 MG TAB PO SCH ×2 (09:14→20:17)
[2018-10-14] MEDS: Multivitamins/Minerals TAB PO SCH (09:15)
[2018-10-14 09:24] LABS: Potassium 6.1 mmol/L (3.5-5.0)
[2018-10-14] MEDS ORDERED: Patiromer POWDER* 8.4 GM PAK PO ONE (11:00)
--- NOTE | 2018-10-14 13:17 | PN ---
Subjective Date of Service: 10/14/18 Interval History: Pt has been sleeping most of the day per nursing. When I awaken Karlos, he denies any pain or SOB. He does tell me that he has soiled himself and needs to be cleaned up. Objective Active Medications: Allopurinol (Zyloprim Tab*) 100 mg PO DAILY [facility] Last Admin: 10/14/18 09:14 Dose: 100 mg Atorvastatin Calcium (Lipitor*) 10 mg PO 1700 [facility] Last Admin: 10/13/18 16:41 Dose: 10 mg Cholecalciferol (Vitamin D Tab*) 400 unit PO DAILY [facility] Last Admin: 10/14/18 09:13 Dose: 400 unit Heparin Sodium (Porcine) (Heparin Vial(*)) 5,000 units SUBCUT Q8HR [facility] Last Admin: 10/14/18 05:17 Dose: Not Given Ceftriaxone Sodium 2 gm/ (Sodium Chloride) 100 mls @ 200 mls/hr IVPB Q24H [facility] Lactulose (Lactulose*) 30 ml PO Q12H [facility] Last Admin: 10/14/18 09:15 Dose: 30 ml Levothyroxine Sodium (Synthroid Tab*) 75 mcg PO DAILY@0600 [facility] Last Admin: 10/14/18 05:17 Dose: 75 mcg Midodrine (Midodrine (Nf)) 7.5 mg PO Q8H [facility]; Protocol Last Admin: 10/14/18 05:17 Dose: 7.5 mg Multivitamins/Minerals (Theragran/Minerals Tab*) 1 tab PO DAILY [facility] Last Admin: 10/14/18 09:15 Dose: 1 tab Ondansetron HCl (Zofran Inj*) 4 mg IV Q6H PRN PRN Reason: NAUSEA Last Admin: 10/13/18 14:30 Dose: 4 mg Pantoprazole Sodium (Protonix Tab*) 40 mg PO BID [facility] Last Admin: 10/14/18 09:14 Dose: 40 mg Sucralfate (Carafate*) 1 gm PO ACHS [facility] Last Admin: 10/14/18 12:11 Dose: Not Given Vital Signs - 8 hr 10/14/18 10/14/18 10/14/18 07:23 08:00 11:14 Temperature 97.9 F 97.8 F Pulse Rate 79 70 Respiratory 18 18 19 Rate Blood Pressure 110/39 97/42 (mmHg) O2 Sat by Pulse 96 96 Oximetry Oxygen Devices in Use Now: None Appearance: Chronically ill appearing male lying in bed sleeping, awakens to voice, NAD Eyes: - - Icteric sclera Respiratory: Symmetrical Chest Expansion and Respiratory Effort, Clear to Auscultation - anteriorly Cardiovascular: NL Sounds; No Murmurs; No JVD, RRR, - - 2-3+ LE edema Abdominal: - - BS+ soft, NT, markedly distended Skin: - - scattered bruises Neurological: - - lethargic Result Diagrams: 10/14/18 06:24 10/14/18 06:24 Microbiology and Other Data: Microbiology 10/13/18 12:13 Gram Stain - Final Peritoneal Fluid Body Fluid Culture - Preliminary No Growth Day 1 Skin and Soft Tissue MRSA/MSSA (PCR - Final Mrsa Negative S.aureus Negative Assess/Plan/Problems-Billing Mr Mcghee is a 67 yo M who has a h/o end stage liver disease secondary to alcoholic cirrhosis who presented to have a pleurex catheter placed due to the need for frequent paracenteses and was found to be tachycardic. - Patient Problems (1) Hyponatremia Current Visit: Yes Status: Acute Code(s): E87.1 - HYPO-OSMOLALITY AND HYPONATREMIA SNOMED Code(s): 91582705 Comment: Pt is chronically hyponatremic but now slightly worse than usual. Can not give IVF as pt already fluid overloaded from his cirrhosis. Also do not want to hold diuretic due to pts fluid status. As pt is on hospice will not intervene further. (2) Tachycardia Current Visit: Yes Status: Acute Code(s): R00.0 - TACHYCARDIA, UNSPECIFIED SNOMED Code(s): 8332708 Comment: Spontaneously resolved while in pre-op without intervention. He has remained in NSR since. ? secondary to anxiety vs pain vs volume depletion. Will continue to monitor. (3) Anemia Current Visit: Yes Status: Acute Code(s): D64.9 - ANEMIA, UNSPECIFIED SNOMED Code(s): 863119512 Comment: Chronic secondary to cirrhosis. H/H down today compared to prior but he has been in this range recently. (4) Alcoholic cirrhosis Current Visit: Yes Status: Acute Code(s): K70.30 - ALCOHOLIC CIRRHOSIS OF LIVER WITHOUT ASCITES SNOMED Code(s): 354243890 Comment: No evidence for SBP, no bacteria on gram stain, culture so far is negative. No fever or elevated WBC count to indicate SBP. Plan for pleurex catheter placement later today with Dr. Machado. Continue usual outpatient regimen of medications. Pt is on hospice and can be discharged back home tomorrow. (5) Stage III chronic kidney disease Current Visit: Yes Status: Acute Code(s): N18.3 - CHRONIC KIDNEY DISEASE, STAGE 3 (MODERATE) SNOMED Code(s): 308685292 Comment: Creatinine is worsening but that is to be expected. No further treatement as pt is on hospice. (6) Hepatic encephalopathy Current Visit: Yes Status: Acute Code(s): K72.90 - HEPATIC FAILURE, UNSPECIFIED WITHOUT COMA SNOMED Code(s): 62211421 Comment: Pt is lethargic. Continue lactulose and rifaximin. Ammonia level not checked this admission. (7) Hypothyroid Current Visit: Yes Status: Acute Code(s): E03.9 - HYPOTHYROIDISM, UNSPECIFIED SNOMED Code(s): 93452916 Comment: Continue current dose of synthroid. (8) DVT prophylaxis Current Visit: Yes Status: Acute Code(s): QWP0261 - SNOMED Code(s): 680010154 Comment: SCDs (9) DNR (do not resuscitate) Current Visit: Yes Status: Acute
[2018-10-14] MEDS ORDERED: cefTRIAXone(*) 2 GM in NS 0.9% 100 ML* 100 ML IVPB SCH (14:00)
[2018-10-14] MEDS: Ciprofloxacin TAB* 500 MG PO SCH (16:52)
[2018-10-14] MEDS: Atorvastatin* 10 MG TAB PO SCH (16:52)
[2018-10-14] MEDS ORDERED: oxyCODONE TAB* 5 MG TAB PO PRN (20:28)
[2018-10-14 21:45] LABS: Urine Appearance Cloudy; Urine Bacteria Absent (Absent); Urine Bilirubin Negative (Negative); Urine Blood 2+ (Negative); Urine Color Yellow; Urine Glucose Negative (Negative); Urine Ketones Negative (Negative); Urine Nitrite Negative (Negative); Urine Protein 1+(30 mg/dL) (Negative); Urine Red Blood Cell 3+(>10/hpf) (Absent); Urine Specific Gravity 1.012 (1.010-1.030); Urine Squamous Epithelial Cell Present (Absent); Urine Urobilinogen Negative (Negative); Urine White Blood Cell Trace(0-5/hpf) (Absent)
--- NOTE | 2018-10-14 22:29 | DS ---
CC: Roselia Nolasco MD * DISCHARGE SUMMARY: DATE OF ADMISSION: 10/13/18 DATE OF DISCHARGE: 10/14/18 - this is anticipated following insertion of PleurX catheter. PRIMARY CARE PROVIDER: Roselia Nolasco MD. PRINCIPAL DIAGNOSES: 1. Decompensated alcoholic cirrhosis/end-stage liver disease. 2. Refractory ascites requiring frequent paracenteses. 3. Hyponatremia - chronic in the setting of decompensated cirrhosis. 4. Anemia. 5. Hyperkalemia. 6. Stage 3 chronic kidney disease with ongoing progression. SECONDARY DIAGNOSES: 1. Hepatic encephalopathy. 2. Hypothyroidism. 3. Hyperlipidemia. 4. Gout. DISCHARGE MEDICATIONS: 1. Protonix 40 mg p.o. b.i.d. 2. Rifaximin 550 mg p.o. daily. 3. Lexapro 2.5 mg p.o. daily. 4. Lasix 20 mg p.o. daily. 5. Carafate 1 g p.o. q. a.c. and h.s. 6. Multivitamin 1 tab p.o. daily. 7. Midodrine 10 mg p.o. t.i.d. 8. Allopurinol 100 mg p.o. daily. 9. Lactulose 30 mL p.o. q.12 hours. 10. Keppra 250 mg p.o. b.i.d. 11. Synthroid 100 mcg p.o. daily. 12. MiraLAX 17 g p.o. daily. 13. Lipitor 10 mg p.o. daily. 14. Cipro 500 mg p.o. daily (new). Discontinued Medications: 1. Spironolactone. 2. Folic acid. 3. Acidophilus. 4. Vitamin D. HOSPITAL COURSE: Mr. Mcghee is a 67-year-old male who presented to the preop area for planned PleurX catheter insertion with Dr. Machado when he was found to be tachycardic. The patient was also mildly hypotensive. There was concern about the tachycardia and therefore, the hospitalist service was asked to see the patient. The patient was admitted for evaluation of the tachycardia. There was concern that perhaps this represented spontaneous bacterial peritonitis. The patient underwent diagnostic paracentesis, which revealed 98 white blood cells in the fluid. Gram stain is negative for bacteria. Culture is still pending at this time, but so far negative. The patient has been afebrile and does not have a leukocytosis, making SBP unlikely. The patient had been on hospice prior to this admission. He has a number of chronic issues including anemia and thrombocytopenia, hyponatremia, hyperkalemia, and worsening chronic kidney disease, which are all attributed to his liver failure. I did discuss at length with the patient's [id number] that there is nothing that we are able to do to improve these lab abnormalities and create a meaningful, lasting change. At this point, as it is low likelihood that the patient has SBP, the PleurX catheter will be placed this evening by Dr. Machado. The patient's family wishes to take him home following the procedure. If all goes as planned, the patient will be discharged home this evening following the PleurX catheter insertion. The patient should be re-signed on to hospice upon returning home. FOLLOWUP CONCERNS: The patient is being discharged home on the evening of 10/14 following PleurX catheter insertion. ACTIVITY LEVEL: As tolerated. DIET: Regular, as tolerated. CONDITION ON DISCHARGE: Guarded. TIME SPENT: Thirty-five minutes were spent discharging this patient. [id number]/[facility] #: [id number] MTDD
--- NOTE | 2018-10-14 23:45 | OP ---
CC: Dr. Alfredo * DATE OF OPERATION: 10/13/18 - ROOM #451 DATE OF : 48 SURGEON: Dr. Manjinder Machado. LOOP CUTTER: None. ANESTHESIOLOGIST: None. PRE-OP DIAGNOSIS: Alcoholic cirrhosis with chronic ascites. POST-OP DIAGNOSIS: Alcoholic cirrhosis with chronic ascites. OPERATIVE PROCEDURE: Placement of abdominal PleurX catheter. DESCRIPTION OF PROCEDURE: The patient is supine. He had been previously interrogated with the ultrasound device and the right upper quadrant site was chosen. Sterile gown, gloves, mask, and hat were in use. The area was prepped with antiseptic, draped in a sterile fashion. Local infiltrative anesthesia was administered in the right subcostal area. Skinny needle was used to identify the fluid and then catheter was passed, guidewire was passed, and then the catheter was tunneled from anteriorly and passed through the peel-away introducer. The cuff was left about 1 cm inside the exit site. The exit site was sutured with silk suture and the initial entering site with Vicryl suture, followed by gauze dressings and a Tegaderm; 2 L of ascites fluid was removed prior to capping off the catheter. He tolerated the procedure well. COMPLICATIONS: There were no complications. DRAINS: No drains. SPECIMENS: No pathologic specimens. COUNTS: Sponge and instrument counts were correct. ESTIMATED BLOOD LOSS: No blood loss. [id number]/[facility] #: [id number] [facility]
[2018-10-15] MEDS: Midodrine (NF) 5 MG TAB PO SCH (05:23)
[2018-10-15] MEDS: Levothyroxine TAB* 75 MCG TAB PO SCH (05:24)
[2018-10-15 05:48] LABS: BUN/Creatinine Ratio 30.2 (8-20); Calcium 8.8 mg/dL (8.6-10.3); EGFR African American 29.6 (>60); EGFR Non-African American 24.5 (>60)
[2018-10-15 05:52] LABS: Potassium 6.1 mmol/L (3.5-5.0)
[2018-10-15] MEDS ORDERED: Patiromer POWDER* 8.4 GM PAK PO SCH ×3 (07:00)
[2018-10-15] MEDS: Sucralfate TAB* 1 GM PO SCH ×2 (07:14→12:16)
[2018-10-15] MEDS: Ciprofloxacin TAB* 500 MG PO SCH (09:39)
[2018-10-15] MEDS: Multivitamins/Minerals TAB PO SCH (09:39)
[2018-10-15] MEDS: Allopurinol TAB* 100 MG PO SCH (09:39)
[2018-10-15] MEDS: Cholecalciferol TAB* 400 UNIT PO SCH (09:39)
[2018-10-15] MEDS: Pantoprazole TAB * 40 MG TAB PO SCH (09:39)
[2018-10-15 11:52] VITALS: BP 109/49
--- NOTE | 2018-10-15 20:59 | DS ---
AMENDED REPORT NOW INCLUDES DATE OF DISCHARGE CC: Primary care provider; [facility] * DISCHARGE SUMMARY: DATE OF DISCHARGE: 10/15/18 ADDENDUM: Please note that the patient's discharge was delayed by 24 hours. The patient stayed overnight in the hospital after the PleurX catheter was placed. He did well. At discharge, he is pleasant, cooperative, and has no complaints. He is going to be discharged today after the family is taught how to use the PleurX catheter by nursing staff. DISCHARGE MEDICATIONS: His discharge medications are unchanged from the ones dictated by Dr. Murillo. LABORATORY DATA: Please note that so far the patient's microbiology tests showed no bacteria noted on peritoneal fluid Gram stain. Blood cultures were negative. Lab work noted on 10/15/18 showed sodium of 125, potassium of 6.1, chloride 98, carbon dioxide 21, BUN 79, creatinine 2.62. Please note that further blood work was not obtained due to the patient's hospice status as an outpatient and comfort care status during the hospital stay. PHYSICAL EXAMINATION: At the time of discharge, blood pressure of 106/49, heart rate of 84 and regular, respiratory rate 18, oxygen saturation 95% on room air, temperature 97.4. General: The patient is a very pleasant 67-year- old male who is in no acute distress. Alert, awake, and oriented x2. HEENT: Head: Atraumatic, normocephalic. Eyes: Pupils are equal, reactive to light and accommodation. Please note that the patient has jaundice and scleral icterus. Oropharynx is clear. Mucosa moist. Neck: Supple. No JVD. No bruits bilaterally. Respiratory: Clear to auscultation bilaterally. Cardiovascular: Regular rate and rhythm. No murmur. Abdomen: With tense ascites present. PleurX catheter in the right lower quadrant noted. The PleurX catheter is going to be used with family teaching prior to discharge. Otherwise, abdomen is nontender and bowel sounds are present in all 4 quadrants. Extremities: There is +1 pitting edema bilaterally. Pulses are +2 bilaterally. There is no clubbing or cyanosis. On neuro evaluation, cranial nerves II through XII grossly intact. The patient has some flattening of the left nasolabial fold and question of chronicity. Motor strength is 5/5 bilaterally. On evaluation of the skin, the patient is jaundiced. CONDITION AT DISCHARGE: Stable. The patient is going to be discharged home with recommendation to follow up with hospice as previously. TIME SPENT: Approximately 32 minutes were spent on the patient's discharge. [id number]/[facility] #: [id number] YAMILET
== END 2018-10-15 16:30 | disposition hospice, home (50) | DRG 433 ==
LOC: OR 09:52 → MEDTELE 11:53
PROVIDERS: ADMIT Surgery; ATTEND Surgery
PROC: 0W9G30Z Drainage of Peritoneal Cavity with Drainage Device, Percutaneous Approach (ICD-10-PCS; principal; 2018-10-13)
DX: K70.31 Alcoholic cirrhosis of liver with ascites (principal); K76.6 Portal hypertension; Q21.1 Atrial septal defect; E87.1 Hypo-osmolality and hyponatremia; K70.40 Alcoholic hepatic failure without coma; E03.9 Hypothyroidism, unspecified; M10.9 Gout, unspecified; E78.5 Hyperlipidemia, unspecified; D63.1 Anemia in chronic kidney disease; F17.210 Nicotine dependence, cigarettes, uncomplicated; R00.0 Tachycardia, unspecified; Z66 Do not resuscitate; E87.5 Hyperkalemia; D69.6 Thrombocytopenia, unspecified; K31.89 Other diseases of stomach and duodenum; N18.3 Chronic kidney disease, stage 3 (moderate); Z91.013 Allergy to seafood
CPT/HCPCS: 36415; 71046; 80048; 80053; 81003; 81015; 82040; 83735; 84484; 85025; 85610; 87040; 87070; 87086; 87205; 87640; 87641; 88112; 89051; 93005; A9270-GY; J0696; J1644; J2405; P9047